=== PATIENT | male | born 1955 | race Caucasian/White ===

== ENCOUNTER 2021-06-26 14:04 | Inpatient (IN) | payer MEDICARE ==
--- NOTE | 2021-06-26 15:07 | ED ---
General Adult HPI - General Chief complaint: Shortness of Breath Stated complaint: SOB Time Seen by Provider: 06/26/21 14:10 Source: patient, RN/MD, EMS, RN notes reviewed, old records reviewed Mode of arrival: EMS Limitations: no limitations - History of Present Illness Initial comments: This is a 66-year-old male who has a past medical history for COVID about one month ago however about a week or so ago he started having some problems breathing and becoming more short of breath and he finally went into the emergency department today and they found that he had new onset atrial fibrillation as well as multiple PVCs. Patient was actually 88 %. Patient was put on Cardizem and heparin before his transfer. Currently patient states he is feeling better. Patient still on heparin and Cardizem. - Related Data Allergies Allergy/AdvReac Type Severity Reaction Status Date / Time No Known Allergies Allergy Verified 06/26/21 14:12 Review of Systems ROS Statement: Those systems with pertinent positive or pertinent negative responses have been documented in the HPI. ROS Other: All systems not noted in ROS Statement are negative. Past Medical History Past Medical History: Hypertension Additional Past Medical History / Comment(s): kidney stones History of Any Multi-Drug Resistant Organisms: None Reported Additional Past Surgical History / Comment(s): surgery to remove kidney stone Past Psychological History: No Psychological Hx Reported Smoking Status: Never smoker Past Alcohol Use History: None Reported Past Drug Use History: None Reported General Exam - General Exam Comments Initial Comments: GENERAL: Patient is well-developed and well-nourished. Patient is nontoxic and well- hydrated and is in mild distress. ENT: Neck is soft and supple. No significant lymphadenopathy is noted. Oropharynx is clear. Moist mucous membranes. Neck has full range of motion without eliciting any pain. EYES: The sclera were anicteric and conjunctiva were pink and moist. Extraocular movements were intact and pupils were equal round and reactive to light. Eyelids were unremarkable. PULMONARY: Unlabored respirations. Good breath sounds bilaterally. No audible rales rhonchi or wheezing was noted. CARDIOVASCULAR: Patient is tachycardic with an irregular rate. ABDOMEN: Soft and nontender with normal bowel sounds. SKIN: Skin is clear with no lesions or rashes and otherwise unremarkable. NEUROLOGIC: Patient is alert and oriented x3. Cranial nerves II through XII are grossly intact. Motor and sensory are also intact. Normal speech, volume and content. Symmetrical smile. MUSCULOSKELETAL: Normal extremities with adequate strength and full range of motion. LYMPHATICS: No significant lymphadenopathy is noted PSYCHIATRIC: Normal psychiatric evaluation. Limitations: no limitations Course Vital Signs 06/26/21 06/26/21 14:07 14:46 Temperature 98.8 F Pulse Rate 98 Respiratory 18 22 Rate Blood Pressure 125/89 O2 Sat by Pulse 97 Oximetry Medical Decision Making - Medical Decision Making I continue the heparin and Cardizem here I consult cardiology and pulmonary. I spoke with the [facility] hospitalist and they agreed to admit the patient Disposition Clinical Impression: Pulmonary embolism, New onset atrial fibrillation Disposition: ADMITTED IP TO THIS HOSP Referrals: Nonstaff,Physician [Primary Care Provider] - 1-2 days Time of Disposition: 15:07
[2021-06-26] MEDS ORDERED: DILTIAZEM DRIP BOLUS FROM BAG 1 MG SOLN IV ONE (15:12)
[2021-06-26] MEDS ORDERED: DILTIAZEM 125 MG in SODIUM CHLORIDE 0.9% 100 ML IV SCH (16:00)
[2021-06-26] MEDS: DILTIAZEM 125 MG in SODIUM CHLORIDE 0.9% 100 ML IV SCH (16:52)
[2021-06-26] MEDS: HEPARIN SOD,PORK IN 0.45% NACL 25,000 UNIT in 0.45% NACL 1 250ML.BAG IV SCH (16:53)
[2021-06-26 20:34] LABS: Basophils % (A) 0 %; Eosinophils % (A) 0 %; HCT 39.8 % (39.0-53.0); HGB 12.5 gm/dL (13.0-17.5); Lymphocytes % (A) 10 %; MCH 27.8 pg (25.0-35.0); MCHC 31.4 g/dL (31.0-37.0); MCV 88.5 fL (80.0-100.0); Mean Platelet Volume 7.7; Monocytes # (A) 0.5 k/uL (0-1.0); Monocytes % (A) 5 %; Neutrophils # (A) 8.2 k/uL (1.3-7.7); Neutrophils % (A) 82 %; Platelet Count 237 k/uL (150-450); RDW 12.8 % (11.5-15.5); WBC 9.9 k/uL (3.8-10.6)
[2021-06-26 21:06] LABS: African American GFR (CKD) >90 (>60 ml/min/1.73 sqM); Anion Gap 5 mmol/L; Blood Urea Nitrogen 21 mg/dL (9-20); Calcium 8.8 mg/dL (8.4-10.2); Carbon Dioxide 27 mmol/L (22-30); Chloride 102 mmol/L (98-107); Glucose 209 mg/dL (74-99); Non-African American GFR(CKD) 82 (>60 ml/min/1.73 sqM); Potassium 3.8 mmol/L (3.5-5.1); Sodium 134 mmol/L (137-145)
[2021-06-26] MEDS: BENZONATATE 100 MG CAP PO PRN (21:24)
--- NOTE | 2021-06-27 01:00 | P.HPIM ---
History of Present Illness H&P Date: 06/26/21 Chief Complaint: Shortness of breath Patient is a 65-year-old male with a known history of hypertension, renal stones and COVID-19 infection diagnosed on May 27, 2021 presented to ER with the complaints of worsening shortness of breath for the past 1 week. Patient is making more short of breath and went initially to [facility] behavior he was found to be in atrial fibrillation with rapid regular rate. Pulse ox was 88% of the time. patient was started on Cardizem drip and heparin drip and was transferred to [facility] for evaluation. Patient was diagnosed with COVID-19 infection about a month ago and had symptoms for 2 to 3 days of shortness of breath and one episode of diarrhea. Patient did have loss of taste but did improve. Patient states that he has been having difficulty hearing since his COVID-19 infection. Denies any ear pain. Fullness in the ear. Patient was also found to have Pulmonary embolism as per CTA at [facility]. Review of Systems Constitutional: Patient denies any fever or chills . No generalized weakness or weight loss. Abdomen: Patient denied nausea vomiting and diarrhea and abdominal pain. Cardiovascular: Patient does have shortness of breath. No chest pain. No p alpitations. No leg swelling.. Respiratory: patient denied any cough or sputum production. + shortness of breath Neurologic: Patient denied any numbness or tingling headache. Musculoskeletal: Patient denies any complaints of joint swelling or deformity. Skin: Negative Psychiatric: Negative Endocrine: No heat or cold intolerance. No recent weight gain. Genitourinary: No dysuria or hematuria. All other 14 point ROS negative except the above Past Medical History Past Medical History: Hypertension Additional Past Medical History / Comment(s): kidney stones History of Any Multi-Drug Resistant Organisms: None Reported Additional Past Surgical History / Comment(s): surgery to remove kidney stone Past Anesthesia/Blood Transfusion Reactions: No Reported Reaction Smoking Status: Never smoker Medications and Allergies Home Medications Medication Instructions Recorded Confirmed Type Ascorbic Acid [Vitamin C] 500 mg PO DAILY 06/26/21 06/26/21 History Benzonatate [Tessalon Perles] 100 mg PO Q6H PRN 06/26/21 06/26/21 History Cholecalciferol (Vitamin D3) 125 mcg PO DAILY 06/26/21 06/26/21 History [Vitamin D3 (125 MCG = 5,000 IU)] Metoprolol Tartrate [Lopressor] 100 mg PO DAILY 06/26/21 06/26/21 History Zinc 50 mg PO DAILY 06/26/21 06/26/21 History amLODIPine [Norvasc] 10 mg PO DAILY 06/26/21 06/26/21 History hydroCHLOROthiazide 25 mg PO DAILY 06/26/21 06/26/21 History lisinopriL 40 mg PO DAILY 06/26/21 06/26/21 History Allergies Allergy/AdvReac Type Severity Reaction Status Date / Time No Known Allergies Allergy Verified 06/26/21 16:09 Physical Exam Vitals: Vital Signs Temp Pulse Pulse Resp BP BP Pulse Ox 06/26/21 19:52 98.3 F 92 18 117/74 96 06/26/21 18:23 105 H 18 106/67 95 06/26/21 14:46 22 06/26/21 14:07 98.8 F 98 18 125/89 97 Intake and Output 06/26/21 06/26/21 06/26/21 06:59 14:59 22:59 Other: Weight 145.603 kg 145.603 kg PHYSICAL EXAMINATION: Patient is lying in the bed comfortably, no acute distress, awake alert and oriented.. HEENT: Normocephalic. Neck is supple. Pupils reactive. Nostrils clear. Oral cavity is moist. Neck reveals no JVD, carotid bruits, or thyromegaly. CHEST EXAMINATION: Trachea is central. Symmetrical expansion. Bilateral scattered coarse sounds. Nonlabored breathing. No wheezing.. CARDIAC: Normal S1, S2 with no gallops. No murmurs ABDOMEN: Soft. Bowel sounds normal. No organomegaly. No abdominal bruits. Extremities: reveal no edema. No clubbing or cyanosis Neurologically awake, alert, oriented x3 with well-coordinated movements. No focal deficits noted Skin: No rash or skin lesions. Psychiatric: Cooperative. Nonsuicidal Musculoskeletal: No joint swelling or deformity. Normal range of motion. Results CBC & Chem 7: 06/26/21 20:13 06/26/21 20:13 Labs: Abnormal Lab Results - Last 24 Hours (Table) 06/26/21 06/26/21 06/26/21 Range/Units 20:13 20:13 20:13 Hgb 12.5 L (13.0-17.5) gm/dL Neutrophils # 8.2 H (1.3-7.7) k/uL APTT 37.1 H (22.0-30.0) sec Sodium 134 L (137-145) mmol/L BUN 21 H (9-20) mg/dL Glucose 209 H (74-99) mg/dL Thrombosis Risk Factor Assmnt - DVT/VTE Prophylaxis DVT/VTE Prophylaxis: Pharmacologic Prophylaxis ordered - Choose All That Apply Any of the Below Risk Factors Present?: Yes Each Factor Represents 1 point: Obesity (BMI >25) Thrombosis Risk Factor Assessment Total Risk Factor Score: 1 Thrombosis Risk Factor Assessment Level: Low Risk Assessment and Plan Assessment: Acute pulmonary embolism likely sequelae of recent COVID-19 infection Acute hypoxic respiratory failure secondary to above New onset atrial fibrillation with rapid regular rate COVID-19 infection tested + on 05/27/2021 Hypertension History of renal stones Morbid obesity with BMI 40.1 DVT prophylaxis Plan: Patient will be continued on Cardizem drip and heparin drip. Continue with oxygen supplementation and monitor CBC and BMP. 2D echocardiogram was ordered to assess for any right ventricular strain. Cardiology and pulmonary was consulted. Continue to follow closely. Time with Patient: Greater than 30
[2021-06-27] MEDS: HEPARIN SOD,PORK IN 0.45% NACL 25,000 UNIT in 0.45% NACL 1 250ML.BAG IV SCH ×3 (03:04→22:46)
[2021-06-27] MEDS: DILTIAZEM 125 MG in SODIUM CHLORIDE 0.9% 100 ML IV SCH (03:07)
[2021-06-27] MEDS ORDERED: METOPROLOL TARTRATE 50 MG TAB PO SCH (09:00)
--- NOTE | 2021-06-27 09:54 | ECHOF ---
Referral Reason:Acute PE MEASUREMENTS -------- HEIGHT: 190.5 cm WEIGHT: 145.6 kg BP: 110/74 RVIDd: 4.0 cm (< 3.3) IVSd: 1.5 cm (0.6 - 1.1) LVIDd: 4.6 cm (3.9 - 5.3) LVPWd: 1.5 cm (0.6 - 1.1) IVSs: 2.1 cm LVIDs: 2.9 cm LVPWs: 1.9 cm LA Diam: 4.5 cm (2.7 - 3.8) LAESV Index (A-L): 38.44 ml/m Ao Diam: 3.7 cm (2.0 - 3.7) AV Cusp: 2.6 cm (1.5 - 2.6) MV EXCURSION: 25.813 mm (> 18.000) MV EF SLOPE: 107 mm/s (70 - 150) EPSS: 0.7 cm RAP: 5.00 mmHg RVSP: 33.58 mmHg FINDINGS -------- Atrial fibrillation. This was a technically difficult study with suboptimal views. The left ventricular size is normal. There is moderate concentric left ventricular hypertrophy. O verall left ventricular systolic function is normal with, an EF between 55 - 60 %. The right ventricle is moderately enlarged. LA is moderately dilated 34-39 ml/m2 The right atrium is normal in size. 5.0mg of Lumason was utilized for enhancement of images The aortic valve is trileaflet, and appears structurally normal. No aortic stenosis or regurgitation. Mild mitral annular calcification present. Mild mitral regurgitation is present. Mild tricuspid regurgitation present. There is borderline pulmonary artery hypertension. The righ t ventricular systolic pressure, as measured by Doppler, is 33.58mmHg. There is no pulmonic regurgitation present. The aortic root size is normal. IVC Not well visulized. There is no pericardial effusion. CONCLUSIONS -------- 1. The left ventricular size is normal. 2. There is moderate concentric left ventricular hypertrophy. 3. Overall left ventricular systolic function is normal with, an EF between 55 - 60 %. 4. The right ventricle is moderately enlarged. 5. LA is moderately dilated 34-39 ml/m2 6. 5.0mg of Lumason was utilized for enhancement of images 7. The aortic valve is trileaflet, and appears structurally normal. No aortic stenosis or regurgitati on. 8. Mild mitral annular calcification present. 9. Mild mitral regurgitation is present. 10. Mild tricuspid regurgitation present. 11. There is borderline pulmonary artery hypertension. 12. The right ventricular systolic pressure, as measured by Doppler, is 33.58mmHg. 13. There is no pericardial effusion. DRUG DISCOVERY INFORMATICS SPECIALIST: Catalina Schmidt RDCS
[2021-06-27] MEDS: METOPROLOL TARTRATE 50 MG TAB PO SCH ×2 (10:07→22:04)
--- NOTE | 2021-06-27 10:54 | P.CRDCN ---
History of Present Illness Consult date: 06/27/21 History of present illness: HISTORY OF PRESENT ILLNESS: This is a 66-year-old male with a past medical history significant for hypertension and recent covid infection (patient believes he was diagnosed on 05/27/2021. He did not receive the Covid vaccine). 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 We have been asked to see the patient in consultation for new onset afib. Patient examined at the bedside. Patient states he began having shortness of breath about 1.5 weeks ago. He states it has gotten progressively worse so he decided to go to [facility] for evaluation. Patient was found to be in afib with RVR. Patient denies history of atrial fibrillation. Patient was also found to have a PE on CTA completed at [facility]. He is currently on IV heparin. Patient remains in atrial fibrillation with controlled ventricular rates. Patient takes metoprolol 100mg daily. He states he was taking this BID but he was unable to tolerate the dosing due to fatigue. He denies chest pain or pressure. Reports mild SOB. Denies palpitations. EKG reveals atrial fibrillation with RVR chest CTA: Small right and very small left pleural effusion. Moderate to large number of PEs bilaterally. Primary to distal branches without saddle embolus. Multiple peripheral consolidations may be associated with PEs or infiltrates. Laboratory data: WBC 9.9. Hemoglobin 12.5. Platelet count 237. Sodium 134. Potassium 3.8. BUN 21. Creatinine 0.97. TSH 0.988. Current home cardiac medications include lisinopril 40 mg daily, HCTZ 25 mg daily, Norvasc 10 mg daily, metoprolol tartrate 100 mg daily echocardiogram completed reveals ejection fraction 55-60%, right ventricle moderately enlarged, mild mitral regurgitation, mild tricuspid regurgitation, borderline pulmonary artery hypertension REVIEW OF SYSTEMS: At the time of my exam: CONSTITUTIONAL: Denies fever or chills. HEENT: Denies blurred vision, vision changes, or eye pain. Denies hemoptysis CARDIOVASCULAR: Denies chest pain. Denies orthopnea. Denies PND. Denies palpitations RESPIRATORY: + shortness of breath. GASTROINTESTINAL: Denies abdominal pain. Denies nausea or vomiting. HEMATOLOGIC: Denies bleeding disorders. GENITOURINARY: Denies any blood in urine. SKIN: Denies pruitis. Denies rash. PHYSICAL EXAM: VITAL SIGNS: Reviewed. GENERAL: Well-developed in no acute distress. HEENT: Head is normocephalic. Pupils are equal, round. Sclerae anicteric. Mucous membranes of the mouth are moist. Neck supple. No JVD or thyromegaly LUNGS: Respirations even and unlabored. Lungs essentially clear to auscultation bilaterally. HEART: Irregular rate and rhythm. S1 and S2 heard. ABDOMEN: Soft. Nondistended. Nontender. EXTREMITIES: Normal range of motion. No clubbing or cyanosis. Peripheral pulses intact. No lower extremity edema NEUROLOGIC: Awake and alert. Oriented x 3. ASSESSMENT: Acute bilateral pulmonary emboli New-onset atrial fibrillation with RVR Hypertension Recent Covid infection, May 2021 PLAN: 2D echo obtained and reviewed TSH obtained and WNL Continue IV heparin Case management consulted for Eliquis copay Continue metoprolol 100mg in the AM. Will add 50mg in the evening Will hold additional antihypertensive medications at this time Further recommendations pending patient course Nurse practitioner note has been reviewed by physician. Signing provider agrees with the documented findings, assessment, and plan of care. Past Medical History Past Medical History: Hypertension Additional Past Medical History / Comment(s): kidney stones History of Any Multi-Drug Resistant Organisms: None Reported Additional Past Surgical History / Comment(s): surgery to remove kidney stone Past Anesthesia/Blood Transfusion Reactions: No Reported Reaction Smoking Status: Never smoker Medications and Allergies Home Medications Medication Instructions Recorded Confirmed Type Ascorbic Acid [Vitamin C] 500 mg PO DAILY 06/26/21 06/26/21 History Benzonatate [Tessalon Perles] 100 mg PO Q6H PRN 06/26/21 06/26/21 History Cholecalciferol (Vitamin D3) 125 mcg PO DAILY 06/26/21 06/26/21 History [Vitamin D3 (125 MCG = 5,000 IU)] Metoprolol Tartrate [Lopressor] 100 mg PO DAILY 06/26/21 06/26/21 History Zinc 50 mg PO DAILY 06/26/21 06/26/21 History amLODIPine [Norvasc] 10 mg PO DAILY 06/26/21 06/26/21 History hydroCHLOROthiazide 25 mg PO DAILY 06/26/21 06/26/21 History lisinopriL 40 mg PO DAILY 06/26/21 06/26/21 History Apixaban [Eliquis Starter Pack 5 - 10 mg PO DIRECTED 30 Days 06/27/21 Rx (for VTE)] #1 each Allergies Allergy/AdvReac Type Severity Reaction Status Date / Time No Known Allergies Allergy Verified 06/26/21 16:09 Physical Exam Vitals: Vital Signs Temp Pulse Pulse Resp BP BP Pulse Ox 06/27/21 04:00 98.2 F 83 18 110/74 95 06/27/21 01:52 96 20 06/26/21 23:50 97.5 F L 94 18 125/84 94 L 06/26/21 20:00 92 18 06/26/21 19:52 98.3 F 92 18 117/74 96 06/26/21 18:23 105 H 18 106/67 95 06/26/21 14:46 22 06/26/21 14:07 98.8 F 98 18 125/89 97 Intake and Output 06/26/21 06/27/21 06/27/21 22:59 06:59 14:59 Intake Total 501.727 Output Total 300 Balance 201.727 Intake: Intake, IV Titration 501.727 Amount Diltiazem 125 mg In 152.5 Sodium Chloride 0.9% 100 ml @ 10 MG/HR 10 mls/hr IV .[id number] RUY Rx#: [id number] Heparin Sod,Pork in 0.45% 349.227 NaCl 25,000 unit In 0.45 % NaCl 1 250ml.bag @ 15. 797 UNITS/KG/HR 23.001 mls/hr IV .[id number] RUY Rx #:[id number] Output: Urine 300 Other: # Voids 1 Weight 145.603 kg 132 kg Results 06/26/21 20:13 06/26/21 20:13 Coagulation 06/26/21 06/27/21 Range/Units 20:13 01:35 APTT 37.1 H 58.2 H (22.0-30.0) sec CBC 06/26/21 Range/Units 20:13 WBC 9.9 (3.8-10.6) k/uL RBC 4.50 (4.30-5.90) m/uL Hgb 12.5 L (13.0-17.5) gm/dL Hct 39.8 (39.0-53.0) % Plt Count 237 (150-450) k/uL Comprehensive Metabolic Panel 06/26/21 Range/Units 20:13 Sodium 134 L (137-145) mmol/L Potassium 3.8 (3.5-5.1) mmol/L Chloride 102 (98-107) mmol/L Carbon Dioxide 27 (22-30) mmol/L BUN 21 H (9-20) mg/dL Creatinine 0.97 (0.66-1.25) mg/dL Glucose 209 H (74-99) mg/dL Calcium 8.8 (8.4-10.2) mg/dL Current Medications Generic Name Dose Route Start Last Admin Trade Name Freq PRN Reason Stop Dose Admin Benzonatate 100 mg 06/26/21 21:05 06/26/21 21:24 Benzonatate 100 Mg Cap PO 100 mg Q6H PRN Administration Cough Heparin Sodium/Sodium Chloride 250 mls @ 23.001 mls/hr 06/26/21 15:15 06/27 03:04 25,000 unit/ Sodium Chloride IV 15.797 units/kg/hr .[id number] RUY 23.001 mls/hr Administration Protocol 15.797 UNITS/KG/HR Metoprolol Tartrate 100 mg 06/27/21 09:00 Metoprolol Tartrate 50 Mg Tab PO BID RUY Intake and Output 06/26/21 06/27/21 06/27/21 22:59 06:59 14:59 Intake Total 501.727 Output Total 300 Balance 201.727 Intake: Intake, IV Titration 501.727 Amount Diltiazem 125 mg In 152.5 Sodium Chloride 0.9% 100 ml @ 10 MG/HR 10 mls/hr IV .[id number] RUY Rx#: [id number] Heparin Sod,Pork in 0.45% 349.227 NaCl 25,000 unit In 0.45 % NaCl 1 250ml.bag @ 15. 797 UNITS/KG/HR 23.001 mls/hr IV .[id number] RUY Rx #:[id number] Output: Urine 300 Other: # Voids 1 Weight 145.603 kg 132 kg 06/26/21 20:13 06/26/21 20:13
--- NOTE | 2021-06-27 11:53 | XR ---
EXAMINATION TYPE: XR chest 1V portable DATE OF EXAM: 06/27/2021 COMPARISON: NONE HISTORY: Shortness of breath TECHNIQUE: Single frontal view of the chest is obtained. FINDINGS: Exam limited by reduced inspiration. There is cardiomegaly and bilateral diffuse interstit ial pattern. Subsegmental infiltrates lung bases. Suspect small bilateral pleural effusions. IMPRESSION: 1. Bilateral interstitial pattern with areas of infiltrate correlate for interstitial pneumonitis wit h underlying anemia. Small bilateral pleural effusions. Venous congestion not excluded but felt less likely correlate clinically.
--- NOTE | 2021-06-27 12:44 | P.CNPUL ---
History of Present Illness Consult date: 06/27/21 Requesting physician: Mayo Stern Reason for consult: dyspnea, hypoxemia, pulmonary embolism, abnormal CXR/CT Chief complaint: Shortness of breath. History of present illness: Pulmonary/critical care consultation dated 06/27/2021 66-year-old male, initially evaluated at [facility]. As of increasing shortness of breath. The patient does have a prior history of hypertension. He sees a nurse practitioner/physicians business support assistant in that area. The patient did have an episode of coronavirus infection back on June 03. He was not hospitalized for that. Anyway, the patient presented to the emergency room there, with increasing shortness of breath. He apparently was found to have atrial fibrillation with rapid ventricular response, and also, CT angiogram apparently showed a pulmonary embolism. For that reason, the patient was admitted to the hospital after being evaluated by Dr. Neil in our emergency room. He was started on IV heparin and Cardizem. The Cardizem and is been turned off. Currently, he's on 3 L nasal cannula, and receiving IV heparin via weightbase protocol. I did ask the nurse to place a order for a portable chest x-ray. His home medications include lisinopril, hydrochlorothiazide, amlodipine, zinc, metoprolol, vitamin D3, Tessalon Perles, vitamin C, and Eliquis. White count 9.9, hemoglobin 12.5, hematocrit 39.8, and platelet count normal. PTT was 58.2. Sodium, potassium, chloride, CO2, anion gap, BUN, and creatinine, are all essentially within normal range. Chest x-rays consistent with an underlying diffuse interstitial pattern. This could relate to underlying mild CHF, and/or sequelae of prior coronavirus infection. Review of Systems REVIEW OF SYSTEMS: CONSTITUTIONAL: [Negative.] NEUROLOGIC: [ Negative.] HEENT: [ Negative.] CARDIAC: Rapid heartbeat with palpitations. PULMONARY: Shortness of breath. GI: [Negative.] : [Negative.] RHEUMATOLOGIC: [ Negative.] IMMUNOLOGIC: [ Negative.] ENDOCRINE: [Negative. ] DERMATOLOGIC: [Negative.] Past Medical History Past Medical History: Hypertension Additional Past Medical History / Comment(s): kidney stones History of Any Multi-Drug Resistant Organisms: None Reported Additional Past Surgical History / Comment(s): surgery to remove kidney stone Past Anesthesia/Blood Transfusion Reactions: No Reported Reaction Smoking Status: Never smoker Medications and Allergies Home Medications Medication Instructions Recorded Confirmed Type Ascorbic Acid [Vitamin C] 500 mg PO DAILY 06/26/21 06/26/21 History Benzonatate [Tessalon Perles] 100 mg PO Q6H PRN 06/26/21 06/26/21 History Cholecalciferol (Vitamin D3) 125 mcg PO DAILY 06/26/21 06/26/21 History [Vitamin D3 (125 MCG = 5,000 IU)] Metoprolol Tartrate [Lopressor] 100 mg PO DAILY 06/26/21 06/26/21 History Zinc 50 mg PO DAILY 06/26/21 06/26/21 History amLODIPine [Norvasc] 10 mg PO DAILY 06/26/21 06/26/21 History hydroCHLOROthiazide 25 mg PO DAILY 06/26/21 06/26/21 History lisinopriL 40 mg PO DAILY 06/26/21 06/26/21 History Apixaban [Eliquis Starter Pack 5 - 10 mg PO DIRECTED 30 Days 06/27/21 Rx (for VTE)] #1 each Allergies Allergy/AdvReac Type Severity Reaction Status Date / Time No Known Allergies Allergy Verified 06/26/21 16:09 Physical Exam Osteopathic Statement: *. No significant issues noted on an osteopathic structural exam other than those noted in the History and Physical/Consult. Vitals: Vital Signs Temp Pulse Pulse Resp BP BP BP 06/27/21 11:20 98 F 89 16 106/73 06/27/21 08:20 97.6 F 95 16 116/84 06/27/21 04:00 98.2 F 83 18 110/74 06/27/21 01:52 96 20 06/26/21 23:50 97.5 F L 94 18 125/84 06/26/21 20:00 92 18 06/26/21 19:52 98.3 F 92 18 117/74 06/26/21 18:23 105 H 18 106/67 06/26/21 14:46 22 06/26/21 14:07 98.8 F 98 18 125/89 Pulse Ox 06/27/21 11:20 98 06/27/21 08:20 96 06/27/21 04:00 95 06/27/21 01:52 06/26/21 23:50 94 L 06/26/21 20:00 06/26/21 19:52 96 06/26/21 18:23 95 06/26/21 14:46 06/26/21 14:07 97 Intake and Output 06/26/21 06/27/21 06/27/21 22:59 06:59 14:59 Intake Total 501.727 434.742 Output Total 300 Balance 201.727 434.742 Intake: Intake, IV Titration 501.727 194.742 Amount Diltiazem 125 mg In 152.5 Sodium Chloride 0.9% 100 ml @ 10 MG/HR 10 mls/hr IV .[id number] [facility] Rx#: [id number] Heparin Sod,Pork in 0.45% 349.227 194.742 NaCl 25,000 unit In 0.45 % NaCl 1 250ml.bag @ 15. 797 UNITS/KG/HR 23.001 mls/hr IV .[id number] [facility] Rx #:[id number] Oral 240 Output: Urine 300 Other: # Voids 1 Weight 145.603 kg 132 kg No acute distress, oriented 3. No respiratory distress, audible wheezing, use of accessory muscles, or conversational dyspnea. HEENT examination is grossly unremarkable. Neck supple. Full range of motion. No adenopathy thyromegaly or neck vein distention. Cardiovascular examination reveals an irregular rhythm and rate. S1-S2 normal. No S3 or S4. No discernible murmur noted. Heart sounds are distant. Heart rate 89 bpm. Lungs reveal mostly clear breath sounds. Minimal basilar crackles are noted. No wheezes or rhonchi. Abdomen soft bowel sounds are heard. No masses or tenderness. Extremities are intact. No cyanosis or clubbing. Minimal lower extremity edema is noted. Skin is without rash or lesion. Neurologic examination is brief but nonfocal. Results - Laboratory Findings CBC and BMP: 06/26/21 20:13 06/26/21 20:13 Abnormal lab findings: Abnormal Labs 06/26/21 06/26/21 06/26/21 20:13 20:13 20:13 Hgb 12.5 L Neutrophils # 8.2 H APTT 37.1 H Sodium 134 L BUN 21 H Glucose 209 H 06/27/21 01:35 Hgb Neutrophils # APTT 58.2 H Sodium BUN Glucose - Diagnostic Findings Chest x-ray: image reviewed Assessment and Plan Assessment: Acute onset of atrial fibrillation with RVR, possibly secondary to acute pulmonary embolism. Prior episode of coronavirus infection, in May, not requiring hospitalization. History of hypertension. Plan: Plan dated 06/27/2021. 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 He has a history of being a lifelong nontobacco user. Prior history of any lung issues. The patient has a pulmonary embolism is seen on CT angiogram at [facility]. The patient will be transitioned to a factor X a inhibitor. Currently, the patient is on IV heparin. He has been seen by Cardiology. Cardizem drip was stopped because of a low heart rate. We will continue to follow make recommendations where appropriate. His only past medical history is hypertension. Time with Patient: Greater than 30
[2021-06-28] MEDS: hydroCHLOROthiazide 25 MG TAB PO SCH (09:53)
[2021-06-28] MEDS: METOPROLOL TARTRATE 50 MG TAB PO SCH ×2 (09:53→20:47)
[2021-06-28] MEDS: BENZONATATE 100 MG CAP PO PRN ×3 (09:53→21:55)
[2021-06-28] MEDS: HEPARIN SOD,PORK IN 0.45% NACL 25,000 UNIT in 0.45% NACL 1 250ML.BAG IV SCH (09:54)
--- NOTE | 2021-06-28 11:29 | P.PN ---
Subjective Progress Note Date: 06/28/21 HISTORY OF PRESENT ILLNESS: This is a 66-year-old male with a past medical history significant for hypertension and recent covid infection (patient believes he was diagnosed on 05/27/2021. He did not receive the Covid vaccine). Patient does not follow with a welfare case worker. We have been asked to see the patient in consultation for new onset afib. Patient examined at the bedside. Patient states he began having shortness of breath about 1.5 weeks ago. He states it has gotten progressively worse so he decided to go to [facility] for evaluation. Patient was found to be in afib with RVR. Patient denies history of atrial fibrillation. Patient was also found to have a PE on CTA completed at [place]. He is currently on IV heparin. Patient remains in atrial fibrillation with controlled ventricular rates. Patient takes metoprolol 100mg daily. He states he was taking this BID but he was unable to tolerate the dosing due to fatigue. He denies chest pain or pressure. Reports mild SOB. Denies palpitations. EKG reveals atrial fibrillation with RVR chest CTA: Small right and very small left pleural effusion. Moderate to large number of PEs bilaterally. Primary to distal branches without saddle embolus. Multiple peripheral consolidations may be associated with PEs or infiltrates. Laboratory data: WBC 9.9. Hemoglobin 12.5. Platelet count 237. Sodium 134. P otassium 3.8. BUN 21. Creatinine 0.97. TSH 0.988. Current home cardiac medications include lisinopril 40 mg daily, HCTZ 25 mg daily, Norvasc 10 mg daily, metoprolol tartrate 100 mg daily echocardiogram completed reveals ejection fraction 55-60%, right ventricle moderately enlarged, mild mitral regurgitation, mild tricuspid regurgitation, borderline pulmonary artery hypertension 06/28/2021 Patient examined this morning at the bedside. Patient denies chest pain or pressure. Denies shortness of breath. Patient remains in atrial fibrillation with controlled ventricular rates. Patient remains on IV heparin. Vital signs stable. PHYSICAL EXAM: VITAL SIGNS: Reviewed. GENERAL: Well-developed in no acute distress. HEENT: Head is normocephalic. Pupils are equal, round. Sclerae anicteric. Mucous membranes of the mouth are moist. Neck supple. No JVD or thyromegaly LUNGS: Respirations even and unlabored. Lungs essentially clear to auscultation bilaterally. HEART: Irregular rate and rhythm. S1 and S2 heard. ABDOMEN: Soft. Nondistended. Nontender. EXTREMITIES: Normal range of motion. No clubbing or cyanosis. Peripheral pulses intact. No lower extremity edema NEUROLOGIC: Awake and alert. Oriented x 3. ASSESSMENT: Acute bilateral pulmonary emboli New-onset atrial fibrillation with RVR Hypertension Recent Covid infection, May 2021 PLAN: Continue current cardiac medications Discontinue IV heparin. Begin Eliquis 10mg BID. Further recommendations pending patient course Nurse practitioner note has been reviewed by physician. Signing provider agrees with the documented findings, assessment, and plan of care. Objective - Vital Signs Vital signs: Vital Signs Temp 97.8 F 06/28/21 07:48 Pulse 82 06/28/21 07:48 Resp 18 06/28/21 07:48 BP 113/76 06/28/21 07:48 Pulse Ox 95 06/28/21 07:48 Intake & Output 06/27/21 06/28/21 06/28/21 18:59 06:59 18:59 Intake Total 674.742 250 490 Output Total 200 700 Balance 474.742 250 -210 Weight 135 kg Intake: Intake, IV Titration 194.742 250 250 Amount Heparin Sod,Pork in 0.45% 194.742 250 250 NaCl 25,000 unit In 0.45 % NaCl 1 250ml.bag @ 15. 797 UNITS/KG/HR 23.001 mls/hr IV .[id number] [facility] Rx #:[id number] Oral 480 240 Output: Urine 200 700 Other: Voiding Method Urinal # Voids 1 - Labs CBC & Chem 7: 06/26/21 20:13 06/26/21 20:13 Labs: Abnormal Lab Results - Last 24 Hours (Table) 06/28/21 Range/Units 03:00 APTT 50.6 H (22.0-30.0) sec
--- NOTE | 2021-06-28 11:41 | P.PN ---
Subjective Progress Note Date: 06/28/21 Principal diagnosis: Michael marie with RVR, PE 66-year-old male, initially evaluated at [facility]. As of increasing shortness of breath. The patient does have a prior history of hypertension. He sees a nurse practitioner/physicians imaging assistant in that area. The patient did have an episode of coronavirus infection back on June 03. He was not hospitalized for that. Anyway, the patient presented to the emergency room there, with increasing shortness of breath. He apparently was found to have atrial fibrillation with rapid ventricular response, and also, CT angiogram apparently showed a pulmonary embolism. For that reason, the patient was admitted to the hospital after being evaluated by Dr. Neil in our emergency room. He was started on IV heparin and Cardizem. The Cardizem and is been turned off. Currently, he's on 3 L nasal cannula, and receiving IV heparin via weightbase protocol. I did ask the nurse to place a order for a portable chest x-ray. His home medications include lisinopril, hydrochlorothiazide, amlodipine, zinc, metoprolol, vitamin D3, Tessalon Perles, vitamin C, and Eliquis. White count 9.9, hemoglobin 12.5, hematocrit 39.8, and platelet count normal. PTT was 58.2. Sodium, potassium, chloride, CO2, anion gap, BUN, and creatinine, are all essentially within normal range. Chest x-rays consistent with an underlying diffuse interstitial pattern. This could relate to underlying mild CHF, and/or sequelae of prior coronavirus infection. The patient is seen today 06/28/2021 in follow-up on the selective care unit. He is currently sitting up in a chair at the bedside. Awake and alert in no acute distress. No worsening shortness of breath, cough or congestion. No hemoptysis. No chest pain. No palpitations. He's remains on a heparin drip. O2 saturations in the mid 90s on 2 L/m per nasal cannula. He's been afebrile. Heart rate controlled and in the 80s. Objective - Vital Signs Vital signs: Vital Signs Temp 97.8 F 06/28/21 07:48 Pulse 82 06/28/21 07:48 Resp 18 06/28/21 07:48 BP 113/76 06/28/21 07:48 Pulse Ox 95 06/28/21 07:48 Intake & Output 06/27/21 06/28/21 06/28/21 18:59 06:59 18:59 Intake Total 674.742 250 490 Output Total 200 700 Balance 474.742 250 -210 Weight 135 kg Intake: Intake, IV Titration 194.742 250 250 Amount Heparin Sod,Pork in 0.45% 194.742 250 250 NaCl 25,000 unit In 0.45 % NaCl 1 250ml.bag @ 15. 797 UNITS/KG/HR 23.001 mls/hr IV .[id number] [facility] Rx #:[id number] Oral 480 240 Output: Urine 200 700 Other: Voiding Method Urinal # Voids 1 - Exam GENERAL EXAM: Alert, pleasant 66 year male patient, on 2 L nasal cannula, comfortable in no apparent distress. HEAD: Normocephalic. EYES: Normal reaction of pupils, equal size. NOSE: Clear with pink turbinates. THROAT: No erythema or exudates. NECK: No masses, no JVD. CHEST: No chest wall deformity. LUNGS: Equal air entry with no crackles, wheeze, rhonchi or dullness. CVS: S1 and S2 normal with no audible murmur, irregular rhythm. ABDOMEN: No hepatosplenomegaly, normal bowel sounds, no guarding or rigidity. SPINE: No scoliosis or deformity SKIN: No rashes CENTRAL NERVOUS SYSTEM: No focal deficits, tone is normal in all 4 extremities. EXTREMITIES: There is no peripheral edema. No clubbing, no cyanosis. Peripheral pulses are intact. - Labs CBC & Chem 7: 06/26/21 20:13 06/26/21 20:13 Labs: Abnormal Lab Results - Last 24 Hours (Table) 06/28/21 Range/Units 03:00 APTT 50.6 H (22.0-30.0) sec Assessment and Plan Assessment: 1 Acute onset of atrial fibrillation with rapid ventricular response 2 Acute bilateral pulmonary emboli 3 Previous history of chronic virus in May 2021 4 History of hypertension Plan: Patient was seen and evaluated by Dr. Paz. He is to be transitioned to Eliquis Trial on room air Cleared for discharge once cleared by cardiology Follow-up with his PCP I, the cosigning physician, performed a history & physical examination of the patient. Lungs sounds are clear. Maintaining good O2 saturations in the 90s on room air. I discussed the assessment and plan of care with my nurse practitioner, Marian Melendez. I attest to the above note as dictated by her.
[2021-06-28] MEDS: APIXABAN 5 MG TAB PO SCH ×2 (12:01→20:47)
[2021-06-28] MEDS ORDERED: ACETAMINOPHEN TAB 325 MG TAB PO PRN (12:05)
[2021-06-29] MEDS: hydroCHLOROthiazide 25 MG TAB PO SCH (08:46)
[2021-06-29] MEDS: METOPROLOL TARTRATE 50 MG TAB PO SCH (08:46)
[2021-06-29] MEDS: APIXABAN 5 MG TAB PO SCH (08:46)
--- NOTE | 2021-06-29 11:12 | P.PN ---
Subjective Progress Note Date: 06/29/21 Principal diagnosis: Michael marie with RVR, PE 66-year-old male, initially evaluated at [facility]. As of increasing shortness of breath. The patient does have a prior history of hypertension. He sees a nurse practitioner/physicians family practice physician assistant in that area. The patient did have an episode of coronavirus infection back on June 03. He was not hospitalized for that. Anyway, the patient presented to the emergency room there, with increasing shortness of breath. He apparently was found to have atrial fibrillation with rapid ventricular response, and also, CT angiogram apparently showed a pulmonary embolism. For that reason, the patient was admitted to the hospital after being evaluated by Dr. Neil in our emergency room. He was started on IV heparin and Cardizem. The Cardizem and is been turned off. Currently, he's on 3 L nasal cannula, and receiving IV heparin via weightbase protocol. I did ask the nurse to place a order for a portable chest x-ray. His home medications include lisinopril, hydrochlorothiazide, amlodipine, zinc, metoprolol, vitamin D3, Tessalon Perles, vitamin C, and Eliquis. White count 9.9, hemoglobin 12.5, hematocrit 39.8, and platelet count normal. PTT was 58.2. Sodium, potassium, chloride, CO2, anion gap, BUN, and creatinine, are all essentially within normal range. Chest x-rays consistent with an underlying diffuse interstitial pattern. This could relate to underlying mild CHF, and/or sequelae of prior coronavirus infection. The patient is seen today 06/28/2021 in follow-up on the selective care unit. He is currently sitting up in a chair at the bedside. Awake and alert in no acute distress. No worsening shortness of breath, cough or congestion. No hemoptysis. No chest pain. No palpitations. He's remains on a heparin drip. O2 saturations in the mid 90s on 2 L/m per nasal cannula. He's been afebrile. Heart rate controlled and in the 80s. The patient is seen today 06/29/2021 in follow-up on the selective care unit. He is currently resting comfortably in bed. Awake and alert in no acute dis tress. He denies any worsening shortness of breath, cough or congestion. No hemoptysis. He is maintaining O2 saturations in the mid 90s on room air. Afebrile. Hemodynamically stable. He remains in atrial fibrillation with a controlled ventricular response. Currently heart rate in the 80s. He's been transitioned to Eliquis. Remains on bronchodilators. Objective - Vital Signs Vital signs: Vital Signs Temp 98.1 F 06/29/21 09:35 Pulse 86 06/29/21 09:35 Resp 18 06/29/21 09:35 BP 100/65 06/29/21 09:35 Pulse Ox 95 06/29/21 09:35 Intake & Output 06/28/21 06/29/21 06/29/21 18:59 06:59 18:59 Intake Total 970 10 240 Output Total 1150 Balance -180 10 240 Weight 145.8 kg Intake: IV 10 Invasive Line 1 10 Intake, IV Titration 250 Amount Heparin Sod,Pork in 0.45% 250 NaCl 25,000 unit In 0.45 % NaCl 1 250ml.bag @ 15. 797 UNITS/KG/HR 23.001 mls/hr IV .[id number] [facility] Rx #:[id number] Oral 720 240 Output: Urine 1150 Other: Voiding Method Urinal Urinal Urinal # Voids 2 - Exam GENERAL EXAM: Alert, pleasant 66 year male patient, on room air, comfortable in no apparent distress. HEAD: Normocephalic. EYES: Normal reaction of pupils, equal size. NOSE: Clear with pink turbinates. THROAT: No erythema or exudates. NECK: No masses, no JVD. CHEST: No chest wall deformity. LUNGS: Equal air entry with no crackles, wheeze, rhonchi or dullness. CVS: S1 and S2 normal with no audible murmur, irregular rhythm. ABDOMEN: No hepatosplenomegaly, normal bowel sounds, no guarding or rigidity. SPINE: No scoliosis or deformity SKIN: No rashes CENTRAL NERVOUS SYSTEM: No focal deficits, tone is normal in all 4 extremities. EXTREMITIES: There is no peripheral edema. No clubbing, no cyanosis. Peripheral pulses are intact. - Labs CBC & Chem 7: 06/26/21 20:13 06/26/21 20:13 Assessment and Plan Assessment: 1 Acute onset of atrial fibrillation with rapid ventricular response, currently controlled on beta blockers anticoagulated with Eliquis 2 Acute bilateral pulmonary emboli, on room air, anticoagulated with Eliquis 3 Previous history of prather virus in May 2021 4 History of hypertension Plan: Patient was seen and evaluated by Dr. Paz. Stable for discharge from the pulmonary standpoint He is transitioned to Eliquis I, the cosigning physician, performed a history & physical examination of the patient. Lungs sounds are clear. Maintaining good O2 saturations in the 90s on room air. I discussed the assessment and plan of care with my nurse practitioner, Marian Melendez. I attest to the above note as dictated by her.
--- NOTE | 2021-06-29 14:02 | P.PN ---
Subjective Progress Note Date: 06/29/21 HISTORY OF PRESENT ILLNESS: This is a 66-year-old male with a past medical history significant for hypertension and recent covid infection (patient believes he was diagnosed on 05/27/2021. He did not receive the Covid vaccine). Patient does not follow with a laboratory animal caretaker. We have been asked to see the patient in consultation for new onset afib. Patient examined at the bedside. Patient states he began having shortness of breath about 1.5 weeks ago. He states it has gotten progressively worse so he decided to go to [facility] for evaluation. Patient was found to be in afib with RVR. Patient denies history of atrial fibrillation. Patient was also found to have a PE on CTA completed at [place]. He is currently on IV heparin. Patient remains in atrial fibrillation with controlled ventricular rates. Patient takes metoprolol 100mg daily. He states he was taking this BID but he was unable to tolerate the dosing due to fatigue. He denies chest pain or pressure. Reports mild SOB. Denies palpitations. EKG reveals atrial fibrillation with RVR chest CTA: Small right and very small left pleural effusion. Moderate to large number of PEs bilaterally. Primary to distal branches without saddle embolus. Multiple peripheral consolidations may be associated with PEs or infiltrates. Laboratory data: WBC 9.9. Hemoglobin 12.5. Platelet count 237. Sodium 134. P otassium 3.8. BUN 21. Creatinine 0.97. TSH 0.988. Current home cardiac medications include lisinopril 40 mg daily, HCTZ 25 mg daily, Norvasc 10 mg daily, metoprolol tartrate 100 mg daily echocardiogram completed reveals ejection fraction 55-60%, right ventricle moderately enlarged, mild mitral regurgitation, mild tricuspid regurgitation, borderline pulmonary artery hypertension 06/28/2021 Patient examined this morning at the bedside. Patient denies chest pain or pressure. Denies shortness of breath. Patient remains in atrial fibrillation with controlled ventricular rates. Patient remains on IV heparin. Vital signs stable. 06/29/2021 Patient examined this morning at the bedside. Patient denies chest pain or pressure. He denies shortness of breath. Patient remains in atrial fibrillation with controlled ventricular rates. He has been started on Eliquis. PHYSICAL EXAM: VITAL SIGNS: Reviewed. GENERAL: Well-developed in no acute distress. HEENT: Head is normocephalic. Pupils are equal, round. Sclerae anicteric. Mucous membranes of the mouth are moist. Neck supple. No JVD or thyromegaly LUNGS: Respirations even and unlabored. Lungs essentially clear to auscultation bilaterally. HEART: Irregular rate and rhythm. S1 and S2 heard. ABDOMEN: Soft. Nondistended. Nontender. EXTREMITIES: Normal range of motion. No clubbing or cyanosis. Peripheral pulses intact. No lower extremity edema NEUROLOGIC: Awake and alert. Oriented x 3. ASSESSMENT: Acute bilateral pulmonary emboli New-onset persistent atrial fibrillation with RVR Hypertension Recent Covid infection, May 2021 PLAN: continue current cardiac medications Patient is stable for discharge home today from a cardiac standpoint He is to follow up on an outpatient basis with Dr. Warren Nurse practitioner note has been reviewed by physician. Signing provider agrees with the documented findings, assessment, and plan of care. Objective - Vital Signs Vital signs: Vital Signs Temp 98.1 F 06/29/21 09:35 Pulse 86 06/29/21 09:35 Resp 18 06/29/21 09:35 BP 100/65 06/29/21 09:35 Pulse Ox 95 06/29/21 09:35 Intake & Output 06/28/21 06/29/21 06/29/21 18:59 06:59 18:59 Intake Total 970 10 240 Output Total 1150 Balance -180 10 240 Weight 145.8 kg Intake: IV 10 Invasive Line 1 10 Intake, IV Titration 250 Amount Heparin Sod,Pork in 0.45% 250 NaCl 25,000 unit In 0.45 % NaCl 1 250ml.bag @ 15. 797 UNITS/KG/HR 23.001 mls/hr IV .[id number] [facility] Rx #:[id number] Oral 720 240 Output: Urine 1150 Other: Voiding Method Urinal Urinal Urinal # Voids 2 - Labs CBC & Chem 7: 06/26/21 20:13 06/26/21 20:13
[2021-06-29 15:38] VITALS: BP 121/78; PULSE 88; RESP 16; TEMP 98.3
== END 2021-06-29 16:49 | disposition home or self-care (01) | DRG 175 ==
LOC: EC 14:04 → 3SCARD 15:11
PROVIDERS: ADMIT Internal Medicine; ATTEND Internal Medicine
DX: I26.99 Other pulmonary embolism without acute cor pulmonale (principal); J96.01 Acute respiratory failure with hypoxia; I48.19 Other persistent atrial fibrillation; Z68.41 Body mass index [BMI] 40.0-44.9, adult; E66.01 Morbid (severe) obesity due to excess calories; I10 Essential (primary) hypertension; I49.3 Ventricular premature depolarization; Z86.16 Personal history of COVID-19; Z79.01 Long term (current) use of anticoagulants; Z79.899 Other long term (current) drug therapy; Z87.442 Personal history of urinary calculi; B94.8 Sequelae of other specified infectious and parasitic diseases
CPT/HCPCS: 71045; 80048; 84443; 85025; 85730; 93306; 99285

== ENCOUNTER 2021-12-22 16:09 | Inpatient (IN) | payer MEDICARE, OTHER ==
--- NOTE | 2021-12-22 17:18 | ED ---
SOB HPI - General Chief Complaint: Shortness of Breath Stated Complaint: Pulmonary interstitial processes Time Seen by Provider: 12/22/21 16:10 Source: EMS Mode of arrival: EMS Limitations: no limitations - History of Present Illness Initial Comments: Steve is a 66-year-old male who presents to the ER today as a transfer from outside facility. Patient reports that he had COVID in July he was admitted to this facility he had pulmonary embolism and developed atrial fibrillation at that time, since then he has taken Eliquis and has had a rate controlled Atrial fibrillation. He has had outpatient follow-up and had CT scans that showed improvement of the damage to his lungs from COVID-19. Patient reports that over the past weeks and progressively worsening shortness of breath this point now that he feels short of breath with any exertion. He does admit to being moderately noncompliant with his hydrochlorothiazide however workup with outp atient facility revealed no signs of heart failure. Computed tomography scan showed diffuse interstitial infiltrate suggestive of a atypical or viral pneumonia patient was negative for flu and COVID at that time. Patient does work outdoors has had exposure to hay and other allergens as well as possible mold and there is concern he may have a fungal pneumonia, he was treated with steroids at outside facility and transferred here for evaluation by pulmonology. - Related Data Home Medications Medication Instructions Recorded Confirmed Ascorbic Acid [Vitamin C] 500 mg PO DAILY 06/26/21 06/26/21 Benzonatate [Tessalon Perles] 100 mg PO Q6H PRN 06/26/21 06/26/21 Cholecalciferol (Vitamin D3) 125 mcg PO DAILY 06/26/21 06/26/21 [Vitamin D3 (125 MCG = 5,000 IU)] Metoprolol Tartrate [Lopressor] 100 mg PO DAILY 06/26/21 06/26/21 Zinc 50 mg PO DAILY 06/26/21 06/26/21 amLODIPine [Norvasc] 10 mg PO DAILY 06/26/21 06/26/21 hydroCHLOROthiazide 25 mg PO DAILY 06/26/21 06/26/21 lisinopriL 40 mg PO DAILY 06/26/21 06/26/21 Previous Rx's Medication Instructions Recorded Apixaban [Eliquis Starter Pack 5 - 10 mg PO DIRECTED 30 Days 06/27/21 (for VTE)] #1 each LORazepam [Ativan] 0.5 mg PO TID 3 Days #9 tab 06/29/21 Metoprolol Tartrate [Lopressor] 50 mg PO HS #30 tab 06/29/21 Allergies Allergy/AdvReac Type Severity Reaction Status Date / Time No Known Allergies Allergy Verified 06/26/21 16:09 Review of Systems ROS Statement: Those systems with pertinent positive or pertinent negative responses have been documented in the HPI. ROS Other: All systems not noted in ROS Statement are negative. Past Medical History Past Medical History: Hypertension Additional Past Medical History / Comment(s): kidney stones History of Any Multi-Drug Resistant Organisms: None Reported Additional Past Surgical History / Comment(s): surgery to remove kidney stone Past Anesthesia/Blood Transfusion Reactions: No Reported Reaction Past Psychological History: No Psychological Hx Reported Smoking Status: Never smoker Past Alcohol Use History: None Reported Past Drug Use History: None Reported General Exam - General Exam Comments Initial Comments: Physical Exam GENERAL: Obese No distress HENT: Normocephalic, Atraumatic. EYES: PERRL, EOMI PULMONARY: Unlabored respirations. CARDIOVASCULAR: Irregular ABDOMEN: Soft and nontender with normal bowel sounds. SKIN: Skin is clear with no lesions or rashes and otherwise unremarkable. : Deferred NEUROLOGIC: Patient is alert and oriented x3. Moving all extremities spontaneously MUSCULOSKELETAL: Normal extremities with adequate strength and full range of motion. No lower extremity swelling or edema. No calf tenderness. PSYCHIATRIC: Normal psychiatric evaluation. Limitations: no limitations Course Vital Signs 12/22/21 16:40 Temperature 98.2 F Pulse Rate 92 Respiratory 16 Rate Blood Pressure 144/99 O2 Sat by Pulse 95 Oximetry Medical Decision Making - Medical Decision Making The patient was seen and evaluated, history is obtained from the patient and review of workup from outside facility, at this time patient is in no acute distress not requiring oxygen supplementation and will be admitted for atypical pneumonia with consult pulmonology. This plan was discussed with Dr. Mulligan of the [facility] group who accepts admission. Disposition Clinical Impression: Interstitial pulmonary disease, unspecified, Dyspnea Disposition: ADMITTED IP TO THIS HOSP Condition: Stable Is patient prescribed a controlled substance at d/c from ED?: No Referrals: None,Stated [Primary Care Provider] - 1-2 days
[2021-12-22] MEDS ORDERED: NALOXONE 0.4 MG/ML 1 ML VIAL IV PRN (18:15)
[2021-12-22] MEDS ORDERED: predniSONE 20 MG TAB PO STA (22:32)
[2021-12-22] MEDS ORDERED: AZITHROMYCIN 500 MG TAB PO STA (22:32)
--- NOTE | 2021-12-22 22:34 | P.HPIM ---
History of Present Illness H&P Date: 12/22/21 The patient is a 66-year-old male with a remote PMH of tobacco abuse, A. fib on Eliquis, and hypertension who was transferred from [facility] where he presented earlier today for shortness of breath. Patient reports that over the past 1 week, he has had gradually worsening shortness of breath with worsening dyspnea on exertion. 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 He reports a nonproductive cough accompanied with his shortness of breath. Denied expressing chest discomfort, shortness of breath, nausea, diaphoresis, or palpitations. Denied lower extremity pain or swelling. Reports that he was diagnosed with COVID-19 pneumonia requiring hospitalization in June 2021, during which she was diagnosed with A. fib and had a PE, and now reports compliance with his anticoagulation. He underwent an extensive evaluation at [facility] which was all reviewed with chest CTA showing no definitive PE with diffuse scattered groundglass opacities consistent with COVID-19 infection as well as nodular density seen at the right lung base, suspected sequela of previous consolidation. Laboratory evaluation was remarkable for COVID-19 negative, influenza A and B-, troponin I 0.02, BNP 379, WBC count 16.2, hemoglobin 14.4, platelets 205, sodium 137, potassium 3.3, chloride 102, CO2 26, BUN 15, creatinine 1.0. The patient's vitals in the emergency room were reviewed with SpO2 93% on room air. Review of systems: Pertinent positives and negatives as discussed in HPI, a complete review of systems was performed and all other systems are negative. Physical examination: General: non toxic, no distress, appears at stated age, obese Derm: no unusual rashes/lesions no unusual ecchymoses, warm, dry Head: atraumatic, normocephalic, symmetric Eyes: EOMI, no lid lag, anicteric sclera, pupils equal round reactive to light ENT: Nose and ears atraumatic, no thrush, no pharyngeal erythema Neck: No thyromegaly, no cervical lymphadenopathy, trachea midline, supple Mouth: no lip lesion, mucus membranes moist Cardiovascular: S1S2 reg, no murmur, positive posterior tibial pulse bilateral, no edema, capillary refill less than 2 seconds Lungs: CTA bilateral, no rhonchi, no rales , no accessory muscle use Abdominal: soft, nontender to palpation, no guarding, no appreciable organomegaly, normal bowel sounds Ext: no gross muscle atrophy, muscle strength 5 out of 5 in all 4 extremities grossly, no contractures, Neuro: CN II-XI grossly intact, light touch intact all 4 extremities, finger to nose within normal limits, Psych: Alert, oriented, appropriate affect Assessment/plan Shortness of breath with bilateral groundglass opacities, suspected atypical pneumonia versus pneumonitis -Start patient on azithromycin and ceftriaxone -Continue with oral prednisone -Pulmonary consult -Obtain pro-calcitonin levels Chronic conditions: Hypertension, A. fib -Continue with home meds DVT prophylaxis -Eliquis The patient is admitted with an anticipated greater than 2 midnight stay for evaluation of SOB CODE STATUS: Full Code Discussed with: Patient Anticipated discharge date: 12/[address]: Home Past Medical History Past Medical History: Hypertension Additional Past Medical History / Comment(s): kidney stones History of Any Multi-Drug Resistant Organisms: None Reported Additional Past Surgical History / Comment(s): surgery to remove kidney stone Past Anesthesia/Blood Transfusion Reactions: No Reported Reaction Past Psychological History: No Psychological Hx Reported Smoking Status: Never smoker Past Alcohol Use History: None Reported Past Drug Use History: None Reported Medications and Allergies Home Medications Medication Instructions Recorded Confirmed Type Metoprolol Tartrate [Lopressor] 100 mg PO BID 06/26/21 12/22/21 History Zinc 50 mg PO DAILY 06/26/21 12/22/21 History lisinopriL 40 mg PO DAILY 06/26/21 12/22/21 History Albuterol Nebulized [Ventolin 2.5 mg INHALATION RT-Q4H PRN 12/22/21 12/22/21 History Nebulized] Apixaban [Eliquis] 5 mg PO BID 12/22/21 12/22/21 History Celecoxib [CeleBREX] 100 mg PO BID PRN 12/22/21 12/22/21 History buPROPion XL [Wellbutrin XL] 150 mg PO DAILY 12/22/21 12/22/21 History hydroCHLOROthiazide [Hydrodiuril] 50 mg PO DAILY 12/22/21 12/22/21 History Allergies Allergy/AdvReac Type Severity Reaction Status Date / Time No Known Allergies Allergy Verified 12/22/21 18:23 Physical Exam Vitals: Vital Signs Temp Pulse Pulse Resp BP BP Pulse Ox 12/22/21 19:25 97.6 F 90 20 163/70 93 L 12/22/21 16:40 98.2 F 92 16 144/99 95 Intake and Output 12/22/21 12/22/21 12/22/21 06:59 14:59 22:59 Other: Weight 158.757 kg Thrombosis Risk Factor Assmnt - Choose All That Apply Any of the Below Risk Factors Present?: No Other Risk Factors: Yes Each Risk Factor Represents 2 Points: Age 61-74 years Other congenital or acquired thrombophilia - If yes, enter type in comment: No Thrombosis Risk Factor Assessment Total Risk Factor Score: 2 Thrombosis Risk Factor Assessment Level: Low Risk
[2021-12-22] MEDS: APIXABAN 5 MG TAB PO SCH (23:39)
[2021-12-23] MEDS: METOPROLOL TARTRATE 50 MG TAB PO SCH ×2 (08:41→20:52)
[2021-12-23] MEDS: APIXABAN 5 MG TAB PO SCH ×2 (08:41→20:52)
[2021-12-23] MEDS: buPROPion XL 150 MG TAB.ER.24H PO SCH (08:41)
[2021-12-23] MEDS: predniSONE 20 MG TAB PO SCH (08:41)
[2021-12-23] MEDS ORDERED: lisinopriL 20 MG TAB PO SCH (09:00)
[2021-12-23] MEDS: AZITHROMYCIN 500 MG TAB PO SCH (11:24)
--- NOTE | 2021-12-23 12:39 | P.CNPUL ---
History of Present Illness Reason for consult: dyspnea History of present illness: A morbidly obese chino, 66 years old, was transferred from [facility] because of worsening shortness of breath. The patient is known to have chronic atrial fibrillation and hypertension and previous history of COVID 19 infection that occurred back in May 2021. The patient was hospitalized for several days in our hospital back in June 2021. At that time, the patient's CAT scan also showed evidence of pulmonary embolism. The patient was treated with steroids. The patient was treated with anticoagulation and the patient was discharged home in the correlation with [facility]. Note that the patient was on oxygen during this hospital stay. Apparently he was discharged home on no oxygen. Following his discharge, he was seen by S/P Fred , a local fine jewelry sales associate, and apparently the patient was doing well. He was told that his follow-up chest x-ray has not completely cleared. I do suspect some chronic changes in combination with previous coronary 19 infection. In any rate, the patient came back to the hospital yesterday and the patient has been expressing worsening shortness of breath, congestion unable to bring up any sputum. No fever. No chills. No hemoptysis. No pleurisy. Denies having any angina. No reported swelling in lower extremities. The patient has been maintaining his anticoagulation knowing that he has also history of atrial fibrillation. Noted the patient has not received any vaccination pre-and post is covered 19 infection. The patient initially was seen at [facility]. The chest x-ray is not available to me. The covered 19 testing was negative. Influenza A and B was negative. Troponin was at 0.02. ProBNP level was 379. The white cell count was 16.2 with a hemoglobin of 14.4 and a platelet count of 205. The BUN is at 50 with a creatinine of 1.0. Pulse ox is 93% room air oxygen. The patient was started on a combination of Rocephin and Zithromax. A computed tomography scan of the chest was done at [facility], images are not available to me at this point in time. Review of Systems Constitutional: Reports fatigue Eyes: denies as per HPI, denies blurred vision, denies bulging eye, denies decreased vision, denies diplopia, denies discharge, denies dry eye, denies irritation, denies itching, denies pain, denies photophobia, denies loss of peripheral vision, denies loss of vision, denies tunnel vision/blind spots Ears: deny: decreased hearing, ear discharge, earache, tinnitus Ears, nose, mouth and throat: Reports as per HPI Breasts: absent: as per HPI, gynecomastia Cardiovascular: Reports decreased exercise tolerance, Reports dyspnea on exertion Respiratory: Reports congestion, Reports dyspnea Gastrointestinal: Reports as per HPI Genitourinary: Reports as per HPI Musculoskeletal: Reports as per HPI Musculoskeletal: absent: ankle pain, ankle stiffness, ankle swelling Integumentary: Reports as per HPI Neurological: Reports as per HPI Psychiatric: Reports as per HPI Endocrine: Reports as per HPI Hematologic/Lymphatic: Reports as per HPI Allergic/Immunologic: Reports as per HPI Past Medical History Past Medical History: Atrial Fibrillation, Hypertension Additional Past Medical History / Comment(s): kidney stones , COVID 03 Jun 2021 complicaed with PE , Obesity History of Any Multi-Drug Resistant Organisms: None Reported Additional Past Surgical History / Comment(s): surgery to remove kidney stone Past Anesthesia/Blood Transfusion Reactions: No Reported Reaction Past Psychological History: No Psychological Hx Reported Smoking Status: Never smoker Past Alcohol Use History: None Reported Past Drug Use History: None Reported Medications and Allergies Home Medications Medication Instructions Recorded Confirmed Type Metoprolol Tartrate [Lopressor] 100 mg PO BID 06/26/21 12/22/21 History Zinc 50 mg PO DAILY 06/26/21 12/22/21 History lisinopriL 40 mg PO DAILY 06/26/21 12/22/21 History Albuterol Nebulized [Ventolin 2.5 mg INHALATION RT-Q4H PRN 12/22/21 12/22/21 History Nebulized] Apixaban [Eliquis] 5 mg PO BID 12/22/21 12/22/21 History Celecoxib [CeleBREX] 100 mg PO BID PRN 12/22/21 12/22/21 History buPROPion XL [Wellbutrin XL] 150 mg PO DAILY 12/22/21 12/22/21 History hydroCHLOROthiazide [Hydrodiuril] 50 mg PO DAILY 12/22/21 12/22/21 History Allergies Allergy/AdvReac Type Severity Reaction Status Date / Time No Known Allergies Allergy Verified 12/22/21 18:23 Physical Exam Vitals: Vital Signs Temp Pulse Pulse Resp BP BP Pulse Ox 12/23/21 08:00 99.3 F 107 H 18 156/97 92 L 12/23/21 07:25 97 12/23/21 01:32 97.3 F L 98 19 157/89 94 L 12/22/21 19:25 97.6 F 90 20 163/70 93 L 12/22/21 16:40 98.2 F 92 16 144/99 95 Intake and Output 12/22/21 12/23/21 12/23/21 22:59 06:59 14:59 Other: # Voids 2 Weight 158.757 kg General: non toxic, no distress, appears at stated age, obese the patient is morbidly obese with a BMI of 43 Derm: no unusual rashes/lesions no unusual ecchymoses, warm, dry Head: atraumatic, normocephalic, symmetric Eyes: EOMI, no lid lag, anicteric sclera, pupils equal round reactive to light ENT: Nose and ears atraumatic, no thrush, no pharyngeal erythema Neck: No thyromegaly, no cervical lymphadenopathy, trachea midline, supple Mouth: no lip lesion, mucus membranes moist Cardiovascular: S1S2 reg, no murmur, positive posterior tibial pulse bilateral, no edema, capillary refill less than 2 seconds Lungs: CTA bilateral, no rhonchi, no rales , no accessory muscle use Abdominal: soft, nontender to palpation, no guarding, no appreciable organo megaly, normal bowel sounds Ext: no gross muscle atrophy, muscle strength 5 out of 5 in all 4 extremities grossly, no contractures, Neuro: CN II-XI grossly intact, light touch intact all 4 extremities, finger to nose within normal limits, Psych: Alert, oriented, appropriate affect Assessment and Plan Plan: 1 shortness of breath on that investigation. The patient is currently on room air oxygen. He was diagnosed having a pneumonia at [facility] patient got transferred here to be treated with IV antibiotics. Nevertheless, he needs to have a further workup. I need to compare his most recent CAT scan which is with old CAT scan to assess progression of disease. He is a chino and there may be an underlying chronic interstitial lung disease and previous history of coronary event infection which has caused some persistent pulmonary infiltration his lungs bilaterally. As such, comparing the CAT scans will be important. For now, the patient on a combination of Rocephin and Zithromax. 2 COVID 19 infection back in June 2021 3 pulmonary embolism in association with COVID 19 pneumonia occurred back in June 2021 4 morbid obesity with a BMI of 43.7 5 chronic atrial fibrillation 6 hypertension Plan Check a pro-calcitonin level Suspect chronic changes in his lungs are than acute abnormalities. However, I cannot make that conclusive decisions to lie compared to CAT scan of the chest that were done during the course of his illness. The patient had a CAT scan of the chest done [facility] on 12/22/2020 which I'm going to obtain the images and uploaded into the system. Continue Rocephin and Zithromax Currently on him in oxygen Continue deterioration with Eliquis Prednisone burst taper We'll follow
--- NOTE | 2021-12-23 12:55 | XR ---
EXAMINATION TYPE: XR chest 2V DATE OF EXAM: 12/23/2021 COMPARISON: Chest x-ray June 27, 2021 HISTORY: Pneumonia. TECHNIQUE: Frontal and lateral views of the chest are obtained. Chronic parenchymal change bilaterally with elevated left hemidiaphragm redemonstrated . No new suspi cious focal airspace opacity,, pleural effusion, or pneumothorax seen. Persistent cardiomegaly. Exagg erated kyphosis near thoracolumbar junction. IMPRESSION: Cardiomegaly and increased markings bilaterally favoring chronic parenchymal fibrosis. N o acute infiltrate clearly seen.
[2021-12-23 13:32] LABS: AST 31 U/L (17-59); African American GFR (CKD) 65 (>60 ml/min/1.73 sqM); Albumin 4.2 g/dL (3.5-5.0); Albumin/Globulin Ratio 1.2; Alkaline Phosphatase 53 U/L (38-126); Anion Gap 13 mmol/L; Blood Urea Nitrogen 31 mg/dL (9-20); C Reactive Protein 8.6 mg/dL (<1.0); Calcium 9.4 mg/dL (8.4-10.2); Carbon Dioxide 24 mmol/L (22-30); Chloride 101 mmol/L (98-107); Globulin 3.4 g/dL; Glucose 223 mg/dL (74-99); Non-African American GFR(CKD) 56 (>60 ml/min/1.73 sqM); Potassium 3.8 mmol/L (3.5-5.1); Sodium 138 mmol/L (137-145); Total Bilirubin 0.9 mg/dL (0.2-1.3); Total Protein 7.6 g/dL (6.3-8.2)
[2021-12-23 13:33] LABS: Basophils % (A) 0 %; Eosinophils % (A) 0 %; HCT 46.6 % (39.0-53.0); HGB 14.7 gm/dL (13.0-17.5); Hypochromasia Slight; Lymphocytes # (A) 1.5 k/uL (1.0-4.8); Lymphocytes % (A) 5 %; MCH 28.2 pg (25.0-35.0); MCHC 31.5 g/dL (31.0-37.0); MCV 89.5 fL (80.0-100.0); Mean Platelet Volume 8.7; Monocytes # (A) 0.9 k/uL (0-1.0); Monocytes % (A) 3 %; Neutrophils # (A) 26.6 k/uL (1.3-7.7); Neutrophils % (A) 91 %; Platelet Count 249 k/uL (150-450); RDW 14.5 % (11.5-15.5); WBC 29.3 k/uL (3.8-10.6)
[2021-12-23 13:37] LABS: ALT 36 U/L (4-49)
[2021-12-23 14:07] LABS: RBC Morphology Normal
--- NOTE | 2021-12-23 17:09 | P.PN ---
Subjective Progress Note Date: 12/23/21 History of Present Illness H&P Date: 12/22/21 The patient is a 66-year-old male with a remote PMH of tobacco abuse, A. fib on Eliquis, and hypertension who was transferred from [facility] where he presented earlier today for shortness of breath. Patient reports that over the past 1 week, he has had gradually worsening shortness of breath with worsening dyspnea on exertion. 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 He reports a nonproductive cough accompanied with his shortness of breath. Denied expressing chest discomfort, shortness of breath, nausea, diaphoresis, or palpitations. Denied lower extremity pain or swelling. Reports that he was diagnosed with COVID-19 pneumonia requiring hospitalization in June 2021, during which she was diagnosed with A. fib and had a PE, and now reports compliance with his anticoagulation. He underwent an extensive evaluation at [facility] which was all reviewed with chest CTA showing no definitive PE with diffuse scattered groundglass opacities consistent with COVID-19 infection as well as nodular density seen at the right lung base, suspected sequela of previous consolidation. Laboratory evaluation was remarkable for COVID-19 negative, influenza A and B-, troponin I 0.02, BNP 379, WBC count 16.2, hemoglobin 14.4, platelets 205, sodium 137, potassium 3.3, chloride 102, CO2 26, BUN 15, creatinine 1.0. The patient's vitals in the emergency room were reviewed with SpO2 93% on room air Interval history: December 23 patient was seen and examined at bedside. He complains of exertional dyspnea only. He denies any chest pain. He is currently room air. No acute changes overnight Objective - Vital Signs Vital signs: Vital Signs Temp 98.7 F 12/23/21 14:00 Pulse 82 12/23/21 14:00 Resp 18 12/23/21 14:00 BP 108/68 12/23/21 14:00 Pulse Ox 93 L 12/23/21 14:00 Intake & Output 12/22/21 12/23/21 12/23/21 18:59 06:59 18:59 Weight 158.757 kg Other: # Voids 2 - Exam General: non toxic, no distress, appears at stated age, obese the patient is morbidly obese with a BMI of 43 Derm: no unusual rashes/lesions no unusual ecchymoses, warm, dry Head: atraumatic, normocephalic, symmetric Eyes: EOMI, no lid lag, anicteric sclera, pupils equal round reactive to light ENT: Nose and ears atraumatic, no thrush, no pharyngeal erythema Neck: No thyromegaly, no cervical lymphadenopathy, trachea midline, supple Mouth: no lip lesion, mucus membranes moist Cardiovascular: S1S2 reg, no murmur, positive posterior tibial pulse bilateral, no edema, capillary refill less than 2 seconds Lungs: CTA bilateral, no rhonchi, no rales , no accessory muscle use Abdominal: soft, nontender to palpation, no guarding, no appreciable organ omegaly, normal bowel sounds Ext: no gross muscle atrophy, muscle strength 5 out of 5 in all 4 extremities grossly, no contractures, Neuro: CN II-XI grossly intact, light touch intact all 4 extremities, finger to nose within normal limits, Psych: Alert, oriented, appropriate affect - Labs CBC & Chem 7: 12/23/21 12:58 12/23/21 12:58 Labs: Abnormal Lab Results - Last 24 Hours (Table) 12/23/21 12/23/21 Range/Units 12:58 12:58 WBC 29.3 H (3.8-10.6) k/uL Neutrophils # 26.6 H (1.3-7.7) k/uL BUN 31 H (9-20) mg/dL Creatinine 1.33 H (0.66-1.25) mg/dL Glucose 223 H (74-99) mg/dL C-Reactive Protein 8.6 H (<1.0) mg/dL Assessment and Plan Assessment: Assessment and plan: Exertional dyspnea Atypical pneumonia Leukocytosis -Unclear etiology -Patient currently on room air oxygen. -He was diagnosed having a pneumonia at [facility] patient got transferred here to be treated with IV antibiotics. -Pulmonary following -Rocephin and Zithromax. -Consult infectious disease COVID 19 infection back in June 2021 Pulmonary embolism in association with COVID 19 pneumonia occurred back in June 2021 -On Eliquis Acute kidney injury -Unknown baseline creatinine -Hold lisinopril and hydrochlorothiazide -Renal ultrasound -Gentle hydration Morbid obesity with a BMI of 43.7 Chronic atrial fibrillation On metoprolol and Eliquis Hypertension Holding lisinopril due to acute kidney injury Add Norvasc 5 mg daily Resume metoprolol
--- NOTE | 2021-12-23 19:33 | US ---
EXAMINATION TYPE: US kidneys/renal and bladder DATE OF EXAM: 12/23/2021 COMPARISON: NONE CLINICAL HISTORY: oma. EXAM MEASUREMENTS: Right Kidney: 12.5 x 4.8 x 5.2cm Left Kidney: 13.1 x 4.9 x 5.7cm Morbidly obese patient making exam technically difficult and limited. Right Kidney: cyst measuring 2.1 x 1.7 x 1.9cm, measures large Left Kidney: cyst measuring1.9 x 1.8 x 1.6cm, measures large Bladder: not fully distended IMPRESSION: Bilateral renal cysts. No evidence of solid renal mass or obstruction. No evidence of a bladder mass.
[2021-12-23] MEDS: SODIUM CHLORIDE 0.9% 1,000 ML IV SCH (23:14)
[2021-12-24] MEDS: AZITHROMYCIN 500 MG TAB PO SCH (07:41)
[2021-12-24] MEDS: predniSONE 20 MG TAB PO SCH (07:41)
[2021-12-24] MEDS: amLODIPine 5 MG TAB PO SCH (07:41)
[2021-12-24] MEDS: METOPROLOL TARTRATE 50 MG TAB PO SCH ×2 (07:42→20:31)
[2021-12-24] MEDS: buPROPion XL 150 MG TAB.ER.24H PO SCH (07:42)
[2021-12-24] MEDS: APIXABAN 5 MG TAB PO SCH ×2 (07:42→20:31)
[2021-12-24 09:17] LABS: HCT 43.5 % (39.6-50.0); HGB 13.5 g/dL (13.0-17.0); MCH 27.3 pg (27.0-32.0); MCV 88.1 fL (80.0-97.0); NRBC Per 100 WBC 0 /100 WBCS (0.0-0.0); Platelet Count 224 X 10*3/uL (140-440); RBC 4.94 X 10*6/uL (4.40-5.60); RDW 14.6 % (11.5-14.5); WBC 26.45 X 10*3/uL (4.50-10.00)
[2021-12-24 09:21] LABS: African American GFR (CKD) 66.4 (60.0-200.0); Albumin 3.8 g/dL (3.8-4.9); Albumin/Globulin Ratio 1.52 (1.60-3.17); Anion Gap 15.1 mmol/L (10.00-18.00); Blood Urea Nitrogen 33.8 mg/dL (9.0-27.0); Calcium 9.2 mg/dL (8.7-10.3); Carbon Dioxide 23.9 mmol/L (20.0-27.5); Globulin 2.5 g/dL (1.6-3.3); Magnesium 2.2 mg/dL (1.5-2.4); Non-African American GFR(CKD) 57.3 (60.0-200.0); Potassium 3.6 mmol/L (3.5-5.5); Total Bilirubin 0.4 mg/dL (0.30-1.20); Total Protein 6.3 g/dL (6.2-8.2)
--- NOTE | 2021-12-24 11:07 | P.PN ---
Subjective Progress Note Date: 12/24/21 History of Present Illness H&P Date: 12/22/21 The patient is a 66-year-old male with a remote PMH of tobacco abuse, A. fib on Eliquis, and hypertension who was transferred from [facility] where he presented earlier today for shortness of breath. Patient reports that over the past 1 week, he has had gradually worsening shortness of breath with worsening dyspnea on exertion. 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 He reports a nonproductive cough accompanied with his shortness of breath. Denied expressing chest discomfort, shortness of breath, nausea, diaphoresis, or palpitations. Denied lower extremity pain or swelling. Reports that he was diagnosed with COVID-19 pneumonia requiring hospitalization in June 2021, during which she was diagnosed with A. fib and had a PE, and now reports compliance with his anticoagulation. He underwent an extensive evaluation at [facility] which was all reviewed with chest CTA showing no definitive PE with diffuse scattered groundglass opacities consistent with COVID-19 infection as well as nodular density seen at the right lung base, suspected sequela of previous consolidation. Laboratory evaluation was remarkable for COVID-19 negative, influenza A and B-, troponin I 0.02, BNP 379, WBC count 16.2, hemoglobin 14.4, platelets 205, sodium 137, potassium 3.3, chloride 102, CO2 26, BUN 15, creatinine 1.0. The patient's vitals in the emergency room were reviewed with SpO2 93% on room air Interval history: December 23 patient was seen and examined at bedside. He complains of exertional dyspnea only. He denies any chest pain. He is currently room air. No acute changes overnight 12/24 patient was seen and examined at the bedside. He reports improvement in hi s symptoms overnight. He denies any chest pain. Still room air. WBC count still elevated but the patient afebrile Objective - Vital Signs Vital signs: Vital Signs Temp 98.2 F 12/24/21 07:37 Pulse 80 12/24/21 07:37 Resp 16 12/24/21 07:37 BP 123/71 12/24/21 07:37 Pulse Ox 95 12/24/21 07:37 Intake & Output 12/23/21 12/24/21 12/24/21 18:59 06:59 18:59 Other: Voiding Method Toilet # Voids 4 2 - Exam General: non toxic, no distress, appears at stated age, obese the patient is morbidly obese with a BMI of 43 Derm: no unusual rashes/lesions no unusual ecchymoses, warm, dry Head: atraumatic, normocephalic, symmetric Eyes: EOMI, no lid lag, anicteric sclera, pupils equal round reactive to light ENT: Nose and ears atraumatic, no thrush, no pharyngeal erythema Neck: No thyromegaly, no cervical lymphadenopathy, trachea midline, supple Mouth: no lip lesion, mucus membranes moist Cardiovascular: S1S2 reg, no murmur, positive posterior tibial pulse bilateral, no edema, capillary refill less than 2 seconds Lungs: CTA bilateral, no rhonchi, no rales , no accessory muscle use Abdominal: soft, nontender to palpation, no guarding, no appreciable or ganomegaly, normal bowel sounds Ext: no gross muscle atrophy, muscle strength 5 out of 5 in all 4 extremities grossly, no contractures, Neuro: CN II-XI grossly intact, light touch intact all 4 extremities, finger to nose within normal limits, Psych: Alert, oriented, appropriate affect - Labs CBC & Chem 7: 12/24/21 02:59 04 02:59 Labs: Abnormal Lab Results - Last 24 Hours (Table) 12/23/21 12/23/21 12/24/21 Range/Units 12:58 12:58 02:59 WBC 29.3 H 26.45 H (3.8-10.6) k/uL MCHC 31.0 L (32.0-37.0) g/dL RDW 14.6 H (11.5-14.5) % Neutrophils # 26.6 H (1.3-7.7) k/uL BUN 31 H (9-20) mg/dL Creatinine 1.33 H (0.66-1.25) mg/dL Est GFR (CKD-EPI)NonAf (60.0-200.0) BUN/Creatinine Ratio (12.00-20.00) Ratio Glucose 223 H (74-99) mg/dL C-Reactive Protein 8.6 H (<1.0) mg/dL Albumin/Globulin Ratio (1.60-3.17) g/dL 12/24/21 Range/Units 02:59 WBC (3.8-10.6) k/uL MCHC (32.0-37.0) g/dL RDW (11.5-14.5) % Neutrophils # (1.3-7.7) k/uL BUN 33.8 H (9-20) mg/dL Creatinine (0.66-1.25) mg/dL Est GFR (CKD-EPI)NonAf 57.3 L (60.0-200.0) BUN/Creatinine Ratio 26.00 H (12.00-20.00) Ratio Glucose 133 H (74-99) mg/dL C-Reactive Protein (<1.0) mg/dL Albumin/Globulin Ratio 1.52 L (1.60-3.17) g/dL Assessment and Plan Assessment: Assessment and plan: Exertional dyspnea Atypical pneumonia Leukocytosis -Unclear etiology -Patient currently on room air oxygen. -He was diagnosed having a pneumonia at [facility] patient got transferred here to be treated with IV antibiotics. -Pulmonary following -Rocephin and Zithromax. -Consult infectious disease COVID 19 infection back in June 2021 Pulmonary embolism in association with COVID 19 pneumonia occurred back in June 2021 -On Eliquis Acute kidney injury -Unknown baseline creatinine -Holding lisinopril and hydrochlorothiazide -Renal ultrasound showed bilateral renal cysts without obstruction -Resume IV hydration Morbid obesity with a BMI of 43.7 -Check A1c Chronic atrial fibrillation On metoprolol and Eliquis Hypertension Holding lisinopril due to acute kidney injury Added Norvasc 5 mg daily Resume metoprolol
[2021-12-24 11:18] LABS: Basophils # (A) 0.04 X 10*3/uL (0.00-0.10); Basophils % (A) 0.2 %; Eosinophils # (A) 0.03 X 10*3/uL (0.04-0.35); Eosinophils % (A) 0.1 %; Immature Grans, Automated 0.8 %; Lymphocytes # (A) 2.69 X 10*3/uL (0.90-5.00); Lymphocytes % (A) 10.2 %; Monocytes # (A) 1.47 X 10*3/uL (0.20-1.00); Monocytes % (A) 5.6 %; Neutrophils % (A) 83.1 %; RBC Morphology NORMAL
--- NOTE | 2021-12-24 16:06 | P.PN ---
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 A morbidly obese chino, 66 years old, was transferred from [facility] because of worsening shortness of breath. The patient is known to have chronic atrial fibrillation and hypertension and previous history of COVID 19 infection that occurred back in May 2021. The patient was hospitalized for several days in our hospital back in June 2021. At that time, the patient's CAT scan also showed evidence of pulmonary embolism. The patient was treated with steroids. The patient was treated with anticoagulation and the patient was discharged home in the correlation with [place]. Note that the patient was on oxygen during this hospital stay. Apparently he was discharged home on no oxygen. Following his discharge, he was seen by S/P Fred , a local statistical assistant, and apparently the patient was doing well. He was told that his follow-up chest x-ray has not completely cleared. I do suspect some chronic changes in combination with previous coronary 19 infection. In any rate, the patient came back to the hospital yesterday and the patient has been expressing worsening shortness of breath, congestion unable to bring up any sputum. No fever. No chills. No hemoptysis. No pleurisy. Denies having any angina. No reported swelling in lower extremities. The patient has been maintaining his anticoagulation knowing that he has also history of atrial fibrillation. Noted the patient has not received any vaccination pre-and post is covered 19 infection. The patient initially was seen at [facility]. The chest x-ray is not available to me. The covered 19 testing was negative. Influenza A and B was negative. Troponin was at 0.02. ProBNP level was 379. The white cell count was 16.2 with a hemoglobin of 14.4 and a platelet count of 205. The BUN is at 50 with a creatinine of 1.0. Pulse ox is 93% room air oxygen. The patient was started on a combination of Rocephin and Zithromax. A computed tomography scan of the chest was done at [facility], images are not available to me at this point in time. Reevaluated today on 12/24/21, patient is feeling better, breathing a lot easier, patient is on room air, and he is not in any distress. His O2 saturation is 95% on room air. Continues to have leukocytosis with WBC count of 26.45, improved compared to admission WBC count of 29.3. Patient had a pro calcitonin level of 0.04/normal, he also had normal labs including basic metabolic profile, and liver profile. Patient tested negative in [place] for Covid 19 infection. Patient is empirically on Rocephin and Zithromax, he is also on prednisone, and he is back on his eliquis for his history of pulmonary embolism. Again clinically the patient is feeling better, breathing easier,, and at this point my recommendation is to continue the present treatment plan, continue to monitor CBC/WBC count, repeat chest x-ray in a.m., ultrasound of the abdomen is negative. Clinically the patient is doing great. Objective - Vital Signs Vital signs: Vital Signs Temp 97.6 F 12/24/21 14:00 Pulse 89 12/24/21 14:00 Resp 20 12/24/21 14:00 BP 114/75 12/24/21 14:00 Pulse Ox 93 L 12/24/21 14:00 Intake & Output 12/23/21 12/24/21 12/24/21 18:59 06:59 18:59 Other: Voiding Method Toilet # Voids 4 2 - Exam Physical Exam: Revealed a 66-year-old white male in no distress, on room air. Head: Atraumatic, normocephalic. HEENT:[Neck is supple.] [No neck masses.] [No thyromegaly.] [No JVD.] Chest: [Clear throughout, no crackles, no rhonchi, no wheezes.]Symmetrical chest expansion. Cardiac Exam: [Normal S1 and S2, no S3 gallop, no murmur.] Abdomen: [Soft, nontender, no megaly, no rebound, no guarding, normal bowel sounds.] Extremities: [No clubbing, no edema, no cyanosis.] Neurological Exam: [No focal neurologic deficit.]Alert oriented 3. Psychiatric: Normal mood, affect and normal mental status examination. Skin: No rashes. - Labs CBC & Chem 7: 12/24/21 02:59 12/24/21 02:59 Labs: Abnormal Lab Results - Last 24 Hours (Table) 04/11/22 04/11/22 04/11/22 Range/Units 02:59 02:59 02:59 WBC 26.45 H (4.50-10.00) X 10*3/uL MCHC 31.0 L (32.0-37.0) g/dL RDW 14.6 H (11.5-14.5) % Immature Gran # 0.22 H (0.00-0.04) X 10*3/uL Neutrophils # 22.00 H (1.80-7.70) X 10*3/uL Monocytes # 1.47 H (0.20-1.00) X 10*3/uL Eosinophils # 0.03 L (0.04-0.35) X 10*3/uL BUN 33.8 H (9.0-27.0) mg/dL Est GFR (CKD-EPI)NonAf 57.3 L (60.0-200.0) BUN/Creatinine Ratio 26.00 H (12.00-20.00) Ratio Glucose 133 H (70-110) mg/dL Hemoglobin A1c 6.6 H (0.0-6.0) % Albumin/Globulin Ratio 1.52 L (1.60-3.17) g/dL Assessment and Plan Assessment: Impression: Shortness of breath most likely secondary to COVID-19 post inflammatory/fibrotic changes in both lungs, and possible underlying community-acquired pneumonia. History of COVID-19 pneumoniae in 2020. Leukocytosis secondary to above. History of pulmonary embolism, maintained on eliquis. Chronic atrial fibrillation. Benign essential hypertension. Possible component of acute diastolic congestive heart failure, Recommendation: Continue antibiotics empirically Continue steroids. Continue bronchodilators. Check BNP level. Repeat chest x-ray in a.m. Consider discharge planning in the next 24 hours. Monitor WBC count in a.m. We'll continue to follow. Time with Patient: Less than 30
[2021-12-24] MEDS: SODIUM CHLORIDE 0.9% 1,000 ML IV SCH ×2 (20:32→23:36)
--- NOTE | 2021-12-24 23:39 | P.CONS ---
History of Present Illness - Reason for Consult Consult date: 12/24/21 Pneumonia with leukocytosis Requesting physician: Kavita Swain - Chief Complaint Shortness of breath x 4 days - History of Present Illness Patient is a 66-year-old male presenting to the hospital on 12/22/2021 for evaluation of increasing shortness of breath and this patient symptom has been going on for about 4 to 5 days before presentation to the hospital, patient denies having any high-grade fever or any chills patient denies having any chest pain patient did have a cough which is mostly mild to moderate intensity and dry in nature patient denies any pleuritic chest pain. Denies any nausea no vomiting no abdominal pain no diarrhea with the symptoms the patient was evaluated by ER physician on arrival to the ER the patient was afebrile and no f ever have been recorded subsequently patient was mildly hypoxic however currently 93-94% on room air, patient did have a white count of 29,000 with a left shift repeat is down to 26,000 patient did have elevated BUN and creatinine liver enzymes are normal procalcitonin less than 0.04 CRP was mild elevated 8.6 blood culture has been negative patient did have a chest x-ray cardiomegaly with increased markings bilaterally favoring chronic parenchymal fibrosis no acute infiltrate clearly seen patient did have abdominal bladder ultrasound bilateral renal cyst no evidence of solid renal mass or obstruction no evidence of a bladder mass, patient apparently did have a Covid and influenza testing at [facility] and those were negative 2- Review of Systems Positive point has been mentioned in the HPI rest of the systems are negative Past Medical History Past Medical History: Atrial Fibrillation, Hypertension Additional Past Medical History / Comment(s): kidney stones , COVID 03 Jun 2021 complicaed with PE , Obesity History of Any Multi-Drug Resistant Organisms: None Reported Additional Past Surgical History / Comment(s): surgery to remove kidney stone Past Anesthesia/Blood Transfusion Reactions: No Reported Reaction Past Psychological History: No Psychological Hx Reported Smoking Status: Never smoker Past Alcohol Use History: None Reported Past Drug Use History: None Reported Medications and Allergies Home Medications Medication Instructions Recorded Confirmed Type Metoprolol Tartrate [Lopressor] 100 mg PO BID 06/26/21 12/22/21 History Zinc 50 mg PO DAILY 06/26/21 12/22/21 History lisinopriL 40 mg PO DAILY 06/26/21 12/22/21 History Albuterol Nebulized [Ventolin 2.5 mg INHALATION RT-Q4H PRN 12/22/21 12/22/21 History Nebulized] Apixaban [Eliquis] 5 mg PO BID 12/22/21 12/22/21 History Celecoxib [CeleBREX] 100 mg PO BID PRN 12/22/21 12/22/21 History buPROPion XL [Wellbutrin XL] 150 mg PO DAILY 12/22/21 12/22/21 History hydroCHLOROthiazide [Hydrodiuril] 50 mg PO DAILY 12/22/21 12/22/21 History Allergies Allergy/AdvReac Type Severity Reaction Status Date / Time No Known Allergies Allergy Verified 12/22/21 18:23 Physical Exam Vitals: Vital Signs Temp Pulse Resp BP Pulse Ox 12/24/21 07:37 98.2 F 80 16 123/71 95 12/24/21 01:30 97.7 F 95 15 147/95 94 L 12/23/21 20:40 98.0 F 96 20 143/93 95 12/23/21 14:00 98.7 F 82 18 108/68 93 L Intake and Output 12/23/21 12/24/21 12/24/21 22:59 06:59 14:59 Other: Voiding Method Toilet # Voids 4 2 GENERAL DESCRIPTION: An elderly male lying in bed, no distress. No tachypnea or accessory muscle of respiration use. HEENT: Shows Pallor , no scleral icterus. Oral mucous membrane is dry. No pharyngeal erythema or thrush NECK: Trachea central, no thyromegaly. LUNGS: Unlabored breathing. decreased intensity of breath sounds HEART: S1, S2, regular rate and rhythm. No loud murmur ABDOMEN: Soft, no tenderness , guarding or rigidity, no organomegaly EXTREMITIES: 1+ edema of feet. SKIN: No rash, no masses palpable. NEUROLOGICAL: The patient is awake, alert, oriented x3, mood and affect normal. Results CBC & Chem 7: 12/24/21 02:59 12/24/21 02:59 Labs: Abnormal Lab Results - Last 24 Hours (Table) 12/23/21 12/23/21 12/24/21 Range/Units 12:58 12:58 02:59 WBC 29.3 H 26.45 H (3.8-10.6) k/uL MCHC 31.0 L (32.0-37.0) g/dL RDW 14.6 H (11.5-14.5) % Immature Gran # 0.22 H (0.00-0.04) X 10*3/uL Neutrophils # 26.6 H 22.00 H (1.3-7.7) k/uL Monocytes # 1.47 H (0.20-1.00) X 10*3/uL Eosinophils # 0.03 L (0.04-0.35) X 10*3/uL BUN 31 H (9-20) mg/dL Creatinine 1.33 H (0.66-1.25) mg/dL Est GFR (CKD-EPI)NonAf (60.0-200.0) BUN/Creatinine Ratio (12.00-20.00) Ratio Glucose 223 H (74-99) mg/dL C-Reactive Protein 8.6 H (<1.0) mg/dL Albumin/Globulin Ratio (1.60-3.17) g/dL 12/24/21 Range/Units 02:59 WBC (3.8-10.6) k/uL MCHC (32.0-37.0) g/dL RDW (11.5-14.5) % Immature Gran # (0.00-0.04) X 10*3/uL Neutrophils # (1.3-7.7) k/uL Monocytes # (0.20-1.00) X 10*3/uL Eosinophils # (0.04-0.35) X 10*3/uL BUN 33.8 H (9-20) mg/dL Creatinine (0.66-1.25) mg/dL Est GFR (CKD-EPI)NonAf 57.3 L (60.0-200.0) BUN/Creatinine Ratio 26.00 H (12.00-20.00) Ratio Glucose 133 H (74-99) mg/dL C-Reactive Protein (<1.0) mg/dL Albumin/Globulin Ratio 1.52 L (1.60-3.17) g/dL Assessment and Plan (1) Atypical pneumonia Current Visit: Yes Status: Acute Code(s): J18.9 - PNEUMONIA, UNSPECIFIED ORGANISM SNOMED Code(s): 647003611 Plan: 1patient with a presentation the hospital with increasing shortness of breath and this patient did have mild cough but no sputum production patient did not have any fever however did have significantly with white count chest x-ray is mostly interstitial infiltrate with a question of atypical pneumonia as currently no other obvious focus of infection patient abdominal soft examination no evidence of any cellulitis or joint swelling and no urinary symptoms the patient seem to be clinically improving with current therapy. 2obtain urine for Legionella antigen and sputum for culture. 3continue with Rocephin and Zithromax in view of clinical improvement. We will follow on clinical condition and cultures to further adjust medication if needed Thank you for this consultation will follow this patient along with you Time with Patient: Less than 30
--- NOTE | 2021-12-25 08:29 | XR ---
EXAMINATION TYPE: XR chest 1V portable DATE OF EXAM: 12/25/2021 COMPARISON: 12/23/2021 HISTORY: Cough TECHNIQUE: Single frontal view of the chest is obtained. FINDINGS: Heart is enlarged and there is a coarsened interstitium with subsegmental basilar infiltra te. No pneumothorax or sizable pleural effusion. Osseous structures are stable IMPRESSION: Diffuse interstitial pattern correlate for chronic interstitial pulmonary lung disease, otherwise consider interstitial pneumonitis. Venous congestion felt less likely given lack of pleural fluid. Findings are stable.
[2021-12-25 09:08] LABS: Basophils # (A) 0.04 X 10*3/uL (0.00-0.10); Basophils % (A) 0.3 %; Eosinophils # (A) 0.15 X 10*3/uL (0.04-0.35); Eosinophils % (A) 0.9 %; HCT 42.5 % (39.6-50.0); HGB 13.4 g/dL (13.0-17.0); Immature Grans, Automated 0.8 %; Lymphocytes # (A) 3.52 X 10*3/uL (0.90-5.00); Lymphocytes % (A) 22.3 %; MCH 27.5 pg (27.0-32.0); MCHC 31.5 g/dL (32.0-37.0); MCV 87.3 fL (80.0-97.0); Mean Platelet Volume 11.5 fL (9.5-12.2); Monocytes # (A) 1.16 X 10*3/uL (0.20-1.00); Monocytes % (A) 7.3 %; NRBC Per 100 WBC 0 /100 WBCS (0.0-0.0); Neutrophils # (A) 10.81 X 10*3/uL (1.80-7.70); Neutrophils % (A) 68.4 %; Platelet Count 231 X 10*3/uL (140-440); RBC 4.87 X 10*6/uL (4.40-5.60); RDW 14.3 % (11.5-14.5); WBC 15.81 X 10*3/uL (4.50-10.00)
[2021-12-25] MEDS: amLODIPine 5 MG TAB PO SCH (09:14)
[2021-12-25] MEDS: APIXABAN 5 MG TAB PO SCH (09:15)
[2021-12-25] MEDS: predniSONE 20 MG TAB PO SCH (09:16)
[2021-12-25] MEDS: buPROPion XL 150 MG TAB.ER.24H PO SCH (09:17)
[2021-12-25] MEDS: AZITHROMYCIN 500 MG TAB PO SCH (09:22)
[2021-12-25] MEDS: METOPROLOL TARTRATE 50 MG TAB PO SCH (09:25)
[2021-12-25 09:26] LABS: African American GFR (CKD) 81.2 (60.0-200.0); Albumin 3.7 g/dL (3.8-4.9); Albumin/Globulin Ratio 1.54 (1.60-3.17); Anion Gap 12.5 mmol/L (10.00-18.00); BUN/Creat Ratio 29.09 Ratio (12.00-20.00); C Reactive Protein 2.7 mg/dL (0.00-0.80); Calcium 8.9 mg/dL (8.7-10.3); Carbon Dioxide 26.5 mmol/L (20.0-27.5); Globulin 2.4 g/dL (1.6-3.3); Magnesium 2.1 mg/dL (1.5-2.4); Non-African American GFR(CKD) 70.1 (60.0-200.0); Potassium 3.6 mmol/L (3.5-5.5); Total Bilirubin 0.4 mg/dL (0.30-1.20); Total Protein 6.1 g/dL (6.2-8.2)
--- NOTE | 2021-12-25 11:10 | P.PN ---
Subjective Progress Note Date: 12/25/21 A morbidly obese chino, 66 years old, was transferred from [facility] because of worsening shortness of breath. The patient is known to have chronic atrial fibrillation and hypertension and previous history of COVID 19 infection that occurred back in May 2021. The patient was hospitalized for several days in our hospital back in June 2021. At that time, the patient's CAT scan also showed evidence of pulmonary embolism. The patient was treated with steroids. The patient was treated with anticoagulation and the patient was discharged home in the correlation with [place]. Note that the patient was on oxygen during this hospital stay. Apparently he was discharged home on no oxygen. Following his discharge, he was seen by S/P Fred , a local linen worker, and apparently the patient was doing well. He was told that his follow-up chest x-ray has not completely cleared. I do suspect some chronic changes in combination with previous coronary 19 infection. In any rate, the patient came back to the hospital yesterday and the patient has been expressing worsening shortness of breath, congestion unable to bring up any sputum. No fever. No chills. No hemoptysis. No pleurisy. Denies having any angina. No reported swelling in lower extremities. The patient has been maintaining his anticoagulation knowing that he has also history of atrial fibrillation. Noted the patient has not received any vaccination pre-and post is covered 19 infection. The patient initially was seen at [facility]. The chest x-ray is not available to me. The covered 19 testing was negative. Influenza A and B was negative. Troponin was at 0.02. ProBNP level was 379. The white cell count was 16.2 with a hemoglobin of 14.4 and a platelet count of 205. The BUN is at 50 with a creatinine of 1.0. Pulse ox is 93% room air oxygen. The patient was started on a combination of Rocephin and Zithromax. A computed tomography scan of the chest was done at [facility], images are not available to me at this point in time. Reevaluated today on 12/24/21, patient is feeling better, breathing a lot easier, patient is on room air, and he is not in any distress. His O2 saturation is 95% on room air. Continues to have leukocytosis with WBC count of 26.45, improved compared to admission WBC count of 29.3. Patient had a pro calcitonin level of 0.04/normal, he also had normal labs including basic metabolic profile, and liver profile. Patient tested negative in [place] for Covid 19 infection. Patient is empirically on Rocephin and Zithromax, he is also on prednisone, and he is back on his eliquis for his history of pulmonary embolism. Again clinica lly the patient is feeling better, breathing easier,, and at this point my recommendation is to continue the present treatment plan, continue to monitor CBC/WBC count, repeat chest x-ray in a.m., ultrasound of the abdomen is negative. Clinically the patient is doing great. On 12/25/2021 patient seen in follow-up on medical surgical floor. She is up in a chair, his been ambulating in the room, tolerating activity well, room air pulse ox is 95-97%, patient has been afebrile. No worsening dyspnea, no cough no chest pain. No fever or chills. Patient remains on Rocephin for possibility of pneumonia. ID service is following, Legionella urine antigen has been sent and pending. Today's labs have been reviewed, white blood cell count is improving and is down to 15.8, hemoglobin is 13.4, electrolytes are within normal limits, B1 is 32 creatinine is 1.1. CRP is improving and is down to 2.7, proBNP level was 1370, his pro-calcitonin level was negative 2 at 0.04. Clinically patient is stable, he denies any specific complaints, he is tolerating ambulation in the hallway. He is hoping to be able to go home today. Objective - Vital Signs Vital signs: Vital Signs Temp 97.9 F 12/25/21 07:12 Pulse 76 12/25/21 10:24 Resp 16 12/25/21 10:24 BP 143/64 12/25/21 07:12 Pulse Ox 95 12/25/21 07:12 Intake & Output 12/24/21 12/25/21 12/25/21 18:59 06:59 18:59 Intake Total 2160 Output Total 250 Balance 2160 -250 Intake: Oral 2160 Output: Urine 250 Other: # Voids 3 3 - Exam GENERAL EXAM: Alert, pleasant, morbidly obese 66-year-old white male, on room air, pulse ox is 95-96%, comfortable in no apparent distress. HEAD: Normocephalic/atraumatic. EYES: Normal reaction of pupils, equal size. Conjunctiva pink, sclera white. NOSE: Clear with pink turbinates. THROAT: No erythema or exudates. NECK: No masses, no JVD, no thyroid enlargement, no adenopathy. CHEST: No chest wall deformity. Symmetrical expansion. LUNGS: Equal air entry with no crackles, wheeze, rhonchi or dullness. CVS: Regular rate and rhythm, normal S1 and S2, no gallops, no murmurs, no rubs ABDOMEN: Soft, nontender. No hepatosplenomegaly, normal bowel sounds, no guarding or rigidity. EXTREMITIES: No clubbing, no edema, no cyanosis, 2+ pulses and upper and lower extremities. MUSCULOSKELETAL: Muscle strength and tone normal. SPINE: No scoliosis or deformity SKIN: No rashes CENTRAL NERVOUS SYSTEM: Alert and oriented -3. No focal deficits, tone is normal in all 4 extremities. PSYCHIATRIC: Alert and oriented -3. Appropriate affect. Intact judgment and insight. - Labs CBC & Chem 7: 12/25/21 04:23 12/25/21 04:23 Labs: Abnormal Lab Results - Last 24 Hours (Table) 12/24/21 12/24/21 12/25/21 Range/Units 02:59 02:59 04:23 WBC 15.81 H (4.50-10.00) X 10*3/uL MCHC 31.5 L (32.0-37.0) g/dL Immature Gran # 0.22 H 0.13 H (0.00-0.04) X 10*3/uL Neutrophils # 22.00 H 10.81 H (1.80-7.70) X 10*3/uL Monocytes # 1.47 H 1.16 H (0.20-1.00) X 10*3/uL Eosinophils # 0.03 L (0.04-0.35) X 10*3/uL BUN (9.0-27.0) mg/dL BUN/Creatinine Ratio (12.00-20.00) Ratio Hemoglobin A1c 6.6 H (0.0-6.0) % C-Reactive Protein (0.00-0.80) mg/dL Total Protein (6.2-8.2) g/dL Albumin (3.8-4.9) g/dL Albumin/Globulin Ratio (1.60-3.17) g/dL 12/25/21 Range/Units 04:23 WBC (4.50-10.00) X 10*3/uL MCHC (32.0-37.0) g/dL Immature Gran # (0.00-0.04) X 10*3/uL Neutrophils # (1.80-7.70) X 10*3/uL Monocytes # (0.20-1.00) X 10*3/uL Eosinophils # (0.04-0.35) X 10*3/uL BUN 32.0 H (9.0-27.0) mg/dL BUN/Creatinine Ratio 29.09 H (12.00-20.00) Ratio Hemoglobin A1c (0.0-6.0) % C-Reactive Protein 2.70 H (0.00-0.80) mg/dL Total Protein 6.1 L (6.2-8.2) g/dL Albumin 3.7 L (3.8-4.9) g/dL Albumin/Globulin Ratio 1.54 L (1.60-3.17) g/dL Microbiology - Last 24 Hours (Table) 12/23/21 17:42 Blood Culture - Preliminary Blood No Growth after 24 hours 12/23/21 17:35 Blood Culture - Preliminary Blood No Growth after 24 hours Assessment and Plan Plan: Assessment: #1. Shortness of breath related to COVID-19 postinflammatory/fibrotic changes in both lungs, and possibility of underlying community-acquired pneumonia. #2. History of COVID-19 pneumonia in 2020 #3. Leukocytosis related to possibility of a community-acquired pneumonia, improving and patient is on a combination of azithromycin and Rocephin. #4. Chronic atrial fibrillation on [place] #5. Benign essential hypertension #6. Possible component of acute diastolic congestive heart failure Plan: Today's chest x-ray has been reviewed showing chronic interstitial pulmonary lung disease proBNP has been noted, not significantly elevated Pro-calcitonin level was negative 2, patient currently remains on Rocephin, ID service is following, Legionella urine antigen has been sent and pending Clinically patient has remained stable, he is maintaining stable O2 saturations, Home oxygen assessment was performed and patient maintain O2 saturations above 90% Breathing comfortably, leukocytosis is improving, no fever or chills He can be considered discharge home today from pulmonary perspective to complete 15 day course of prednisone taper Antibiotic recommendations from ID service Patient has a rescue inhaler at home We would like to see him in follow-up either at [facility] with Dr. Charles or the main office on [facility] I have personally seen and examined the patient, performed the documentation and the assessment and plan as written. Number of minutes spent on the visit: [10] Time with Patient: Less than 30
[2021-12-25 13:20] VITALS: BP 138/99; PULSE 83; RESP 19; TEMP 97.1
--- NOTE | 2021-12-25 15:46 | P.DS ---
Providers Date of admission: 12/22/21 18:15 Expected date of discharge: 12/25/21 Attending physician: Miller Woods MD Consults: 12/22/21 18:16 Consult Physician Urgent Consulting Provider: Marc Paz Consult Reason/Comments: atypical pneumonia, COVID in Nov Do you want consulting provider notified?: Yes, Notify in am 12/23/21 17:01 Consult Physician Routine Consulting Provider: Ivelisse Pérez Consult Reason/Comments: Pneumonia with leukocytosis Do you want consulting provider notified?: Yes Primary care physician: Stated None Hospital Course: The patient is a 66-year-old male with a remote PMH of tobacco abuse, A. fib on Eliquis, and hypertension who was transferred from [facility] where he presented earlier today for shortness of breath. Chest CTA showing no definitive PE with diffuse scattered groundglass opacities consistent with COVID-19 infection as well as nodular density seen at the right lung base, suspected sequela of previous consolidation. Laboratory evaluation was remarkable for COVID-19 negative, influenza A and B-, troponin I 0.02, BNP 379, WBC count 16.2, hemoglobin 14.4, platelets 205, sodium 137, potassium 3.3, chloride 102, CO2 26, BUN 15, creatinine 1.0. The patient's vitals in the emergency room were reviewed with SpO2 93% on room air. Exertional dyspnea Atypical pneumonia Leukocytosis He was diagnosed having a pneumonia at [facility] patient got transferred here to be treated with IV antibiotics. He improved quickly with ceftriaxone/azithromycin. H was discharged home with levoquin and prednisone per pulmonary recs. COVID 19 infection back in June 2021 Pulmonary embolism in association with COVID 19 pneumonia occurred back in June 2021 -On Eliquis Acute kidney injury Hypertension -Unknown baseline creatinine -Holding lisinopril and hydrochlorothiazide, these were discontinued on discharge, and replaced with amlodipine. -Renal ultrasound showed bilateral renal cysts without obstruction -Resume IV hydration Morbid obesity with a BMI of 43.7 -outpatient weight loss referral Chronic atrial fibrillation Continued metoprolol and Eliquis I spent 32 minutes coordinating this complex discharge Gen: awake, alert HEENT: normocephalic, atraumatic, good hearing acuity, moist mucous membranes Resp: good air exchange, breathing comfortably with no accessory muscle use CVS: good distal perfusion x 4, GI: soft, NTTP, ND : no SPT, no CVAT, young catheter not present MSK: no pitting edema, no clubbing Neuro: non-focal, moving all extremities Psych: cooperative, euthymic mood Patient Condition at Discharge: Good Plan - Discharge Summary Discharge Rx Participant: No New Discharge Prescriptions: New Levofloxacin [Levaquin] 750 mg PO DAILY 5 Days #5 tab predniSONE 0 mg PO DIRECTED 15 Days #30 tab amLODIPine [Norvasc] 5 mg PO DAILY tab Continue Zinc 50 mg PO DAILY buPROPion XL [Wellbutrin XL] 150 mg PO DAILY Celecoxib [CeleBREX] 100 mg PO BID PRN PRN Reason: Pain Apixaban [Eliquis] 5 mg PO BID Metoprolol Tartrate [Lopressor] 100 mg PO BID Albuterol Nebulized [Ventolin Nebulized] 2.5 mg INHALATION RT-Q4H PRN PRN Reason: Shortness Of Breath Discontinued lisinopriL 40 mg PO DAILY hydroCHLOROthiazide [Hydrodiuril] 50 mg PO DAILY Discharge Medication List Metoprolol Tartrate [Lopressor] 100 mg PO BID 06/26/21 [History] Zinc 50 mg PO DAILY 06/26/21 [History] Albuterol Nebulized [Ventolin Nebulized] 2.5 mg INHALATION RT-Q4H PRN 12/22/21 [History] Apixaban [Eliquis] 5 mg PO BID 12/22/21 [History] Celecoxib [CeleBREX] 100 mg PO BID PRN 12/22/21 [History] buPROPion XL [Wellbutrin XL] 150 mg PO DAILY 12/22/21 [History] Levofloxacin [Levaquin] 750 mg PO DAILY 5 Days #5 tab 12/25/21 [Rx] amLODIPine [Norvasc] 5 mg PO DAILY tab 12/25/21 [Rx] predniSONE 0 mg PO DIRECTED 15 Days #30 tab 12/25/21 [Rx] Follow up Appointment(s)/Referral(s): Mckenzie Lafleur MD [STAFF PHYSICIAN] - 01/09/22 1:00 pm None,Stated [Primary Care Provider] - 1-2 days (please call and schedule an appointment with a Primary Care Provider ) Patient Instructions/Handouts: Pneumonia (DC) Discharge Disposition: HOME SELF-CARE
== END 2021-12-25 16:10 | disposition home or self-care (01) | DRG 193 ==
LOC: EC 16:09 → 4SSUR 18:15
PROVIDERS: ADMIT Family Medicine; ATTEND Family Medicine
DX: J18.9 Pneumonia, unspecified organism (principal); I50.31 Acute diastolic (congestive) heart failure; Z68.41 Body mass index [BMI] 40.0-44.9, adult; N17.9 Acute kidney failure, unspecified; I48.20 Chronic atrial fibrillation, unspecified; Z86.16 Personal history of COVID-19; I11.0 Hypertensive heart disease with heart failure; I48.91 Unspecified atrial fibrillation; J84.10 Pulmonary fibrosis, unspecified; E66.01 Morbid (severe) obesity due to excess calories; E09.9 Drug or chemical induced diabetes mellitus without complications; N28.1 Cyst of kidney, acquired; Z91.19 Patient's noncompliance with other medical treatment and regimen; Z79.01 Long term (current) use of anticoagulants; Z79.1 Long term (current) use of non-steroidal anti-inflammatories (NSAID); Z79.899 Other long term (current) drug therapy; Z87.442 Personal history of urinary calculi; Z87.01 Personal history of pneumonia (recurrent); Z87.891 Personal history of nicotine dependence; Z86.711 Personal history of pulmonary embolism
CPT/HCPCS: 71045; 71046; 76770; 80053; 83036; 83735; 83880; 84145; 84443; 85025; 86140; 87040; 87449; 99285